=== PATIENT | female | born 1930 | race Caucasian/White ===

== ENCOUNTER 2016-11-09 10:34 | Inpatient (IN) ==
[2016-11-09] MEDS ORDERED: ONDANSETRON 4 MG/2 ML VIAL IV PRN (15:13)
[2016-11-09] MEDS ORDERED: ZALEPLON 5 MG CAPSULE PO PRN (15:13)
[2016-11-09] MEDS ORDERED: MAGNESIUM SULF RIDER 2 GM in PREMIX 1 EACH IV PRN (15:13)
[2016-11-09] MEDS ORDERED: ACETAMINOPHEN 325 MG TABLET PO PRN (15:13)
[2016-11-09] MEDS ORDERED: MAGNESIUM SULF RIDER 4 GM in PREMIX 1 EACH IV PRN (15:13)
[2016-11-09] MEDS ORDERED: BISACODYL 5 MG TABLET PO PRN (15:13)
--- NOTE | 2016-11-09 15:25 | EKG Report ---
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
--- NOTE | 2016-11-09 15:31 | Cardiology History & Physical ---
<José AntonioHanMichelle E - Last Filed: 11/09/16 15:16> Assessment and Plan - Time spent with patient Time spent with patient: Greater than 30 minutes (Due to assessment, plan, and documentation.) (1) Symptomatic bradycardia Status: Acute Assessment and plan: This occurred while patient has been on digoxin and coreg. Will hold all mariusz blocking agents and continue to monitor. Dr. Ponce to follow with further plan and addendum. Current Visit: Yes (2) Syncope Status: Acute Assessment and plan: Has had one syncopal and several pre-syncopal episodes. Now presents for further evaluation. Will obtain carotid ultrasound and echocardiogram. Current Visit: Yes (3) History of atrial fibrillation Status: Chronic Assessment and plan: Unsure whether this is chronic or paroxysmal. Will continue anticoagulation and monitor. Current Visit: Yes (4) Hypertension Status: Chronic Assessment and plan: Will resume home medications and continue to monitor and adjust as needed. Current Visit: Yes (5) Diabetes mellitus Status: Chronic Assessment and plan: Accucheks ACHS with sliding scale insulin. Current Visit: Yes (6) Hyperlipidemia Status: Chronic Assessment and plan: We will check lipid panel in a.m. Current Visit: Yes (7) History of leukemia Status: Resolved Assessment and plan: Has been in remission for the past 6 or 7 years. Current Visit: Yes (8) Chronic anticoagulation Status: Chronic Assessment and plan: On Coumadin daily. Will monitor PT/INR. Current Visit: Yes History of Present Illness Chief complaint: syncope, bradycardia History of present illness: [employer]: DR. LAINEZ PCP: DR. NORRIS Ms. Guerra is a 86 year old female who has been followed by Dr. Lainez in the past. She has history of atrial fibrillation, diabetes mellitus, hypertension, hyperlipidemia, chronic anticoagulation, leukemia in remission. Risk factors are significant for: Hypertension, diabetes, hyperlipidemia, sedentary lifestyle. She is a lifetime non-smoker. She denies a history of CVA or TIA. Ms. Guerra is admitted to the telemetry unit from Dr. Norris's office in [place] for further evaluation of syncope and bradycardia. Ms. Guerra has been having presyncopal episodes for the past month. This past Sunday, she had a syncopal episode around 4 or 5:00 in the evening. Her son was at home with her when this occurred and apparently she was sitting in her chair when her eyes rolled back in her head and she slumped over. She tells me that she woke up with her son standing over her asking if she was okay. Apparently this episode lasted less than a minute she has no recollection of this. She denies loss of bowel or bladder or biting her tongue. She tells me today she had 5 episodes where things went "dark" that lasted approximately 2-3 seconds. Her daughter Destiny is at the bedside and states it seems as if these episodes are becoming more frequent and more intense. She denies associated chest pain, shortness of breath, dizziness, palpitations, lightheadedness. She was recently given a Holter monitor to wear and the report from this revealed multiple episodes of bradycardia including many pauses longer than 30 seconds, several pauses of 4-5 seconds at least 2 of which were associated with presyncope symptoms per patient diary. Per report from her PCP, her digoxin was held but she had subsequent tachyarrhythmias. Dr. Ponce to follow with further plan and addendum. Home Medications Medication Instructions Recorded Confirmed Type Carvedilol 12.5 mg PO BID 11/09/16 11/09/16 History Digoxin 0.5 tablet PO DAILY@1800 11/09/16 11/09/16 History Furosemide 20 mg PO DAILY 11/09/16 11/09/16 History Gemfibrozil 600 mg PO BID 11/09/16 11/09/16 History Lisinopril 20 mg PO DAILY 11/09/16 11/09/16 History Guys-3 Fatty Acids/Fish Oil [Fish 1 capsule PO DAILY 11/09/16 11/09/16 History Oil 1,000 mg Softgel] Potassium Chloride [K-Tab ER] 20 meq PO BID 11/09/16 11/09/16 History Warfarin [Coumadin] 2.5 mg PO DAILY@1800 11/09/16 11/09/16 History amLODIPine [Norvasc] 5 mg PO DAILY 11/09/16 11/09/16 History glipiZIDE [Glipizide] 5 mg PO BID 11/09/16 11/09/16 History Allergies Allergy/AdvReac Type Severity Reaction Status Date / Time No Known Allergies Allergy Verified 11/09/16 14:18 Review of systems: - Constitutional: Present: As per HPI. Absent: anorexia, chills, daytime sleepiness, excessive sweating, fever(s), frequent falls, headache(s), increased appetite, lethargy, malaise, night sweats, stops breathing during sleep, weakness, weight gain, weight loss, fatigue. - EENT Eyes: Present: As per HPI. Absent: blurry vision, diplopia, loss of vision Ears: Present: As per HPI. Absent: decreased hearing, ear discharge, ear pain Nose, mouth and throat: Present: As per HPI. Absent: dysphagia, epistaxis, headache(s), hoarseness, lip swelling, nasal congestion, neck mass, neck pain, sinus pressure, sore throat, throat swelling, tongue swelling, vertigo - Cardiovascular: Present: as per HPI. Absent: chest pain at rest, chest pain with activity, dyspnea, dyspnea on exertion, edema, claudication, diaphoresis, radiating jaw, neck or arm pain, lightheadedness, orthopnea, palpitations, PND - Respiratory: Present: as per HPI. Absent: dyspnea, dyspnea on exertion, cough , hemoptysis, wheezing, snoring, pain on inspiration - Gastrointestinal: Present: As per HPI. Absent: abdominal pain, bloating, change in bowel habits, constipation, diarrhea, heartburn, hematemesis, hematochezia, loose stools, melena, nausea, vomiting - Genitourinary: Present: As per HPI. Absent: difficulty urinating, dysuria, flank pain, hematuria, nocturia, urinary frequency, urinary incontinence - Musculoskeletal: Present: As per HPI. Absent: arthralgias, back pain, joint swelling, limited range of motion, muscle cramps, muscle weakness, myalgias - Neurological: Present: syncope, near syncope, as per HPI. Absent: abnormal gait, abnormal speech, behavioral changes, confusion, convulsions, disequilibrium, dizziness, focal weakness, frequent falls, headache(s), memory loss, numbness, paresthesias, radicular pain, tremor(s) - Psychiatric: Present: As per HPI. Absent: anxiety, confusion, depression, panic attacks - Endocrine: Present: As per HPI. Absent: cold intolerance, fatigue, heat intolerance, polydipsia, polyphagia - Hematologic/Lymphatic: Present: As per HPI. Absent: easy bleeding, easy bruising, lymphadenopathy Medical,Surgical,& Family Hx - Medical History Cardio: History of: Cardiac Dysrhythmia (afib), Hypertension Endocrine: History of: Diabetes Mellitus (IDDM), Dyslipidemia Hematology: History of: Hematologic Cancer (History of leukemia 6 or 7 years ago , now in remission.) Other: History of: Cancer (leukemia, skin ca) - Surgical History Orthopedic Surgeries: Surgical HX of;: Total Hip Replacement (right) - Family History Family History: Reports;: Family Cancer, Family Diabetes, Family Heart Disease, Family Hypertension, Family Stroke - Social History Smoking Status: Never smoker Frequency of Alcohol Use: None Type of Drug Use: None Marital Status: Single Lives With:: Alone Functional capacity: independent ambulation Cardiology Physical Exam - Constitutional Vitals: Vital Signs Temp Pulse Resp BP Pulse Ox 98.4 F 62 18 142/81 100 11/09/16 14:09 11/09/16 14:09 11/09/16 14:09 11/09/16 14:09 11/09/16 14:09 Intake and Output 11/09/16 11/09/16 11/09/16 06:59 14:59 22:59 Other: Weight 118 lb Patient Weight 11/10/16 06:59 Weight 118 lb Exam: General appearance: Pleasant and cooperative. Normal weight, no acute distress. - Head Head exam: Present: normal inspection, normocephalic, atraumatic. Absent: hematoma, laceration - Eye Eye exam: Present: EOMI. Absent: conjunctival injection, nystagmus, periorbital swelling, scleral icterus, laceration to eyelids Pupils: Present: PERRL. Absent: constricted, dilated, fixed, irregular, unequal - ENT ENT exam: Present: normal exam, normal external ear exam - Neck Neck exam: Present: normal inspection. Absent: lymphadenopathy, meningismus, tenderness, thyromegaly - Respiratory Respiratory exam: Present: clear to auscultation bilaterally. Absent: accessory muscle use, chest wall tenderness - Cardiovascular Cardiovascular exam: Present: irregular rate and rhythm, bradycardia, soft systolic murmur. Absent: carotid bruit, gallop, JVD, rubs - GI/Abdominal GI/Abdominal exam: Present: normal bowel sounds, soft. Absent: distended, firm , guarding, hernia, mass, tenderness, rebound. - Extremities Exam Extremities exam: Present: normal inspection, normal capillary refill. Upper extremity pulses 2+. Lower extremity pulses 2+. Absent: calf tenderness, edema -Musculoskeletal Exam Musculoskeletal: Present: No Fluid Collection, No Pain, Normal Range of Motion - Back Exam Back exam: Present: normal inspection. Absent: muscle spasm, vertebral tenderness - Neurological Exam Neurological exam: Present: alert, oriented X3, grossly intact without resting or essential tremor - Psychiatric Psychiatric exam: Present: normal affect, normal mood - Skin Skin exam: Present: normal color, warm, dry, intact. Absent: cyanosis, diaphoretic, rash, urticaria Result/EKG - EKG EKG results: interpreted by me (Bradycardia) EKG shows: atrial fibrillation <Francy Ponce - Last Filed: 11/09/16 18:16> History of Present Illness History of present illness: I have personally interviewed and evaluated the patient, reviewed the chart and discussed medical decision-making with practitioner José Antonio. I have read this note and agree with her documentation here in. We are going to stop her Coumadin, digoxin and Coreg. She likely will require pacemaker implantation but we will monitor her rhythm once we have withheld her mariusz blocking agents. I discussed this case with Dr. Lutz. Cardiology Physical Exam - Constitutional Vitals: Vital Signs Temp Pulse Resp BP Pulse Ox 98.2 F 62 18 165/82 98 11/09/16 16:00 11/09/16 16:00 11/09/16 16:00 11/09/16 16:00 11/09/16 16:00 Intake and Output 11/09/16 11/09/16 11/09/16 07:59 15:59 23:59 Other: Weight 53.524 kg Patient Weight 11/09/16 23:59 Weight 53.524 kg Result/EKG - Labs CBC & BMP: 11/09/16 15:27 11/09/16 15:27 Labs: Laboratory Results - last 24 hr 11/09/16 11/09/16 11/09/16 15:27 15:27 15:27 WBC 8.3 RBC 4.33 Hgb 13.4 Hct 41.6 MCV 96.1 MCH 31 MCHC 32.2 RDW 13.3 Plt Count 186 MPV 10.9 Neut % (Auto) 37.6 L Lymph % (Auto) 47.1 [place] % (Auto) 12.4 Eos % (Auto) 2.0 Baso % (Auto) 0.7 Neut # (Auto) 3.1 Lymph # (Auto) 3.9 [place] # (Auto) 1.0 H Eos # (Auto) 0.2 Baso # (Auto) 0.1 Total Counted 100 Immature Gran % 0.2 Nucleated RBC % 0.0 Immature Gran # 0.02 Segmented Neutrophils 51 Lymphocytes 40 Monocytes 7 Eosinophils 2 Nucleated RBCs # 0.00 Platelet Estimate Normal INR PT Patient/Control Mix Sodium 142 Potassium 4.1 Chloride 108 H Carbon Dioxide 28 Anion Gap 10.1 BUN 18 Creatinine 0.70 GFR Calculation 72 BUN/Creatinine Ratio 25.00 H Glucose 127 H Calculated Osmolality 286.1 Calcium 8.8 Total Bilirubin 0.40 AST 23 ALT 22 Alkaline Phosphatase 76 B-Natriuretic Peptide Total Protein 6.0 L Albumin 3.6 Globulin 2.4 Albumin/Globulin Ratio 1.5 TSH 3rd Generation 1.740 11/09/16 11/09/16 15:27 15:27 WBC RBC Hgb Hct MCV MCH MCHC RDW Plt Count MPV Neut % (Auto) Lymph % (Auto) [place] % (Auto) Eos % (Auto) Baso % (Auto) Neut # (Auto) Lymph # (Auto) [place] # (Auto) Eos # (Auto) Baso # (Auto) Total Counted Immature Gran % Nucleated RBC % Immature Gran # Segmented Neutrophils Lymphocytes Monocytes Eosinophils Nucleated RBCs # Platelet Estimate INR 1.6 PT Patient/Control Mix 17.2 Sodium Potassium Chloride Carbon Dioxide Anion Gap BUN Creatinine GFR Calculation BUN/Creatinine Ratio Glucose Calculated Osmolality Calcium Total Bilirubin AST ALT Alkaline Phosphatase B-Natriuretic Peptide 309 H Total Protein Albumin Globulin Albumin/Globulin Ratio TSH 3rd Generation
[2016-11-09] MEDS ORDERED: GLUCAGON 1 MG VIAL IM PRN (15:39)
[2016-11-09] MEDS ORDERED: DEXTROSE 50% 25 GM/50 ML VIAL IV PRN (15:39)
[2016-11-09 16:23] LABS: Basophils # 0.1 10*3/uL (0.0-0.2); Basophils % 0.7 % (0.0-0.8); Eosinophils # 0.2 10*3/uL (0.0-0.87); Hematocrit 41.6 VOL% (35.7-47.0); Hemoglobin 13.4 GM/DL (12.0-16.0); Immature Granulocytes % 0.2 %; Immature Granulocytes Absolute 0.02 #; Lymphocytes # 3.9 10*3/uL (1.4-4.0); Lymphocytes % 47.1 % (21.3-54.2); Mean Corpuscular HGB Conc 32.2 GM/DL (32-36); Mean Corpuscular Hemoglobin 31 PG (27-34); Mean Corpuscular Volume 96.1 FL (87-102); Mean Platelet Volume 10.9 FL (9.6-12.0); Monocytes % 12.4 % (1.7-12.7); Neutrophils # 3.1 10*3/uL (1.4-7.4); Neutrophils % 37.6 % (38.7-73.9); Platelet Count 186 T/CUMM (130-400); Red Blood Count 4.33 MC/CUMM (3.8-5.5); Red Cell Distribution Width 13.3 % (9.3-17.3); White Blood Count 8.3 T/CUMM (4-12)
[2016-11-09 16:32] LABS: INR 1.6; PT Patient Result 17.2 SECS
[2016-11-09 16:53] LABS: Albumin 3.6 G/DL (3.4-5.0); Bilirubin,Total 0.4 MG/DL (0.2-1.0); Calcium 8.8 MG/DL (8.5-10.1); Osmolality,Calculated 286.1 MOS/KG (273-304); Potassium 4.1 MMOL/L (3.5-5.1)
[2016-11-09 17:22] LABS: Eosinophils 2 % (0-10); Lymphocytes 40 % (20-55); Platelet Estimate Normal; Segmented Neutrophils 51 % (50-85); Total Cells Counted 100
[2016-11-09] MEDS: INSULIN LISPRO 100 UNIT/ML SUBCUT SCH ×2 (17:41→21:27)
--- NOTE | 2016-11-09 18:41 | XRay Report ---
History: Shortness of breath Date: 11/09/2016 Study: Chest x-ray single view Comparison exam: No previous chest x-ray available There is cardiomegaly. There is no mediastinal mass. There is mild aortic arch calcification. The pulmonary vasculature is not engorged. The lungs are well expanded. There are some scattered emphysematous changes. There is no acute infiltrate. There is no gross pleural effusion. There is osteopenia. There is [id number] thoracic spondylosis. Impression: Cardiomegaly without overt CHF. Chronic lung changes PROCEDURE INTERPRETED AT [facility] DEPARTMENT OF RADIOLOGY Final Report Signed by: Dr. Maryam Rose
--- NOTE | 2016-11-09 19:23 | Ultrasound Report ---
History: Syncope Date: 11/09/2016 Study: Carotid duplex ultrasound Comparison exam: No previous Color Doppler, wave form analysis, and grayscale analysis of the cervical carotid arteries was performed. There is some mild to moderate partially calcified plaque in either carotid bulb. Waveform analysis shows proper directional flow of the cervical carotid arteries. There is antegrade flow in either vertebral artery. The distal right ICA measures 4.4 mm diameter; the left measures 4.7 mm diameter. Peak systolic velocities are as follows: Right CCA 52 cm/s Right ICA 54 cm/s Right ECA 69 cm/s Right vertebral 53 cm/s Right IC/CC ratio 1.0 Left CCA 55 cm/s Left ICA 48 cm/s Left ECA 51 cm/s Left vertebral 24 cm/s Left IC/CC ratio 0.9 There is 0-15% diameter reduction narrowing of either internal carotid artery using indirect NASCET criteria. Ultrasound images were captured and archived. Impression: No hemodynamically significant internal carotid artery stenosis PROCEDURE INTERPRETED AT [facility] DEPARTMENT OF RADIOLOGY Final Report Signed by: Dr. Maryam Rose
[2016-11-10 05:28] LABS: Basophils # 0.1 10*3/uL (0.0-0.2); Basophils % 0.7 % (0.0-0.8); Eosinophils # 0.3 10*3/uL (0.0-0.87); Eosinophils % 3.3 % (0.00-10.9); Hematocrit 38.3 VOL% (35.7-47.0); Hemoglobin 12.7 GM/DL (12.0-16.0); Immature Granulocytes % 0.2 %; Immature Granulocytes Absolute 0.02 #; Lymphocytes # 5.5 10*3/uL (1.4-4.0); Lymphocytes % 56.6 % (21.3-54.2); Mean Corpuscular HGB Conc 33.2 GM/DL (32-36); Mean Corpuscular Hemoglobin 31 PG (27-34); Mean Corpuscular Volume 93.4 FL (87-102); Mean Platelet Volume 10.5 FL (9.6-12.0); Monocytes # 0.8 10*3/uL (0.11-0.8); Monocytes % 7.8 % (1.7-12.7); Neutrophils # 3.1 10*3/uL (1.4-7.4); Neutrophils % 31.4 % (38.7-73.9); Platelet Count 167 T/CUMM (130-400); White Blood Count 9.8 T/CUMM (4-12)
[2016-11-10 05:53] LABS: Atypical Lymphocytes Few; Eosinophils 2 % (0-10); Hypochromasia 1+; Lymphocytes 67 % (20-55); Microcytosis 1+; Platelet Estimate Adequate; Segmented Neutrophils 26 % (50-85); Total Cells Counted 100
[2016-11-10 06:06] LABS: Albumin 3.3 G/DL (3.4-5.0); Bilirubin,Total 0.9 MG/DL (0.2-1.0); Calcium 8.6 MG/DL (8.5-10.1); Potassium 3.8 MMOL/L (3.5-5.1); Risk Ratio 5.6; Total Protein 5.6 G/DL (6.4-8.3); VLDL CHOLESTEROL 37.2 MG/DL
--- NOTE | 2016-11-10 07:47 | EKG Report ---
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
--- NOTE | 2016-11-10 08:05 | Electrophysiology Progress Not ---
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 Hypertension hyperlipidemia CLL type 2 diabetes mellitus. -We discussed risks and benefits of management options. We will proceed with a pacemaker implantation on Sunday. -Follow-up echo. -Continue to hold anticoagulation, Coreg and digoxin Current Visit: Yes (2) Syncope Status: Acute Current Visit: Yes (3) History of atrial fibrillation Status: Chronic Current Visit: Yes (4) Diabetes mellitus Status: Chronic Current Visit: Yes (5) Hypertension Status: Chronic Current Visit: Yes (6) Hyperlipidemia Status: Chronic Current Visit: Yes (7) History of leukemia Status: Resolved Current Visit: Yes (8) Chronic anticoagulation Status: Chronic Current Visit: Yes Electrophysiology Subjective Interval history: 86-year-old female, with history of chronic atrial fibrillation, now with intermittent dizziness lightheadedness and one episode of syncope. Indolent CLL , hypertension hyperlipidemia, type 2 diabetes mellitus. She was admitted due to symptomatic bradycardia. On the EKG and telemetry, she is in atrial fibrillation, with occasional pauses up to 3 seconds, with dominant bradycardia. She is currently feeling fine, but unsteady when tries to ambulate. She was anticoagulated, which is on hold currently. No significant injuries, related to falls so far. She was on digoxin and carvedilol for rate control, which were hold, but the heart rate trend did not improve significantly. Exam - Constitutional Vitals: Period Temp Pulse Resp BP Sys/[place] Pulse Ox Last 24 Hr 98 F-99.6 F 62-79 14-18 131-165/66-93 96-100 General appearance: normal weight, no acute distress - Head Head exam: Present: normal inspection, normocephalic - Eye Eye exam: Absent: conjunctival injection Pupils: Absent: dilated - ENT ENT exam: Present: normal external ear exam - Neck Neck exam: Present: normal inspection - Respiratory Respiratory exam: Present: clear to auscultation bilaterally - Cardiovascular Cardiovascular exam: Present: irregular rhythm, systolic murmur - GI/Abdominal GI/Abdominal exam: Present: normal bowel sounds - Extremities Exam Extremities exam: Present: normal inspection, normal capillary refill. Absent: edema - Back Exam Back exam: Present: normal inspection - Neurological Exam Neurological exam: Present: alert, oriented X3 - Psychiatric Psychiatric exam: Present: normal affect, normal mood - Skin Skin exam: Present: normal color, warm. Absent: cyanosis Results - Labs CBC & BMP: 11/10/16 05:18 11/10/16 05:18 Lab Results: I have reviewed the past 24 hour labs
[2016-11-10] MEDS: INSULIN LISPRO 100 UNIT/ML SUBCUT SCH ×4 (09:03→21:00)
[2016-11-10] MEDS: PANTOPRAZOLE 40 MG TABLET PO SCH (10:48)
--- NOTE | 2016-11-10 11:38 | Cardiology Progress Note ---
<Isatu Isbell E - Last Filed: 11/10/16 11:38> Assessment and Plan - Time spent with patient Time spent with patient: Greater than 30 minutes (1) Symptomatic bradycardia Status: Acute Assessment and plan: See plan of care listed below Current Visit: Yes (2) Syncope Status: Acute Assessment and plan: See plan of care listed below Current Visit: Yes (3) Chronic anticoagulation Status: Chronic Assessment and plan: See plan of care listed below Current Visit: Yes (4) Diabetes mellitus Status: Chronic Assessment and plan: See plan of care listed below Current Visit: Yes (5) History of atrial fibrillation Status: Chronic Assessment and plan: See plan of care listed below Current Visit: Yes (6) Hyperlipidemia Status: Chronic Assessment and plan: See plan of care listed below Current Visit: Yes (7) Hypertension Status: Chronic Assessment and plan: See plan of care listed below Current Visit: Yes (8) History of leukemia Status: Resolved Assessment and plan: See plan of care listed below Current Visit: Yes Cardiology - PN: Subj Interval history: CONSULTATIVE SALES ASSOCIATE: DR. LAINEZ PCP: DR. NORRIS Ms. Guerra is a 86 year old female who has been followed by Dr. Lainez in the past. She has history of atrial fibrillation, diabetes mellitus, hypertension, hyperlipidemia, chronic anticoagulation, leukemia in remission. Patient was admitted November 09, 2016 for evaluation of syncope and bradycardia. She had been followed outpatient by Dr. Norris for syncope. She was noted to have atrial fibrillation with several long pauses on 24-hour Holter monitor. Her digoxin has been held as well as her beta-valente. Dr. Lutz has been consulted and she will require permanent pacemaker implantation on Sunday, November. In the meantime, her Coumadin has been held in an effort to ready her for procedure on Sunday. Labs are stable. This morning she states she is doing well without chest pain, heaviness or tightness. She continues to have long pauses. She states she is feeling fine at this point. Tomorrow, may need to consider starting Lovenox for 24 hours depending on results of INR. ASSESSMENT/PLAN: 1. SYNCOPE - no recurrent syncope since admission. Continue to monitor closely 2. BRADYCARDIA, SYMPTOMATIC - all mariusz blocking agents have been held at this time. Pacemaker is planned for Sunday 3. HYPERTENSION - adequately controlled 4. ATRIAL FIBRILLATION - persistent 5. DIABETES - continue to cover with sliding scale 6. DYSLIPIDEMIA - continue lipid-lowering agent 7. HISTORY OF CLL - stable 8. CHRONIC ANTICOAGULATION - warfarin on hold. Monitoring PT/INR daily Exam (Progress Note) - Constitutional Vitals: Period Temp Pulse Resp BP Sys/Toscano Pulse Ox Last 24 Hr 98 F-99.9 F 62-79 14-18 131-179/66-93 95-100 Exam: General: [Appears well with no apparent distress.] [Pleasant and cooperative. ] [Appears comfortable.] HEENT: [PERRL, normocephalic, atraumatic. Mucous membranes moist. No jaundice noted. Conjunctiva moist and clear, sclerae anicteric] Neck: No JVD/HJR, no thyromegaly or lymphadenopathy noted. No carotid bruit appreciated Cardiac: [Regular rate and rhythm.] [No murmur rub or gallop.] Lungs: [Clear to auscultation without accessory muscle use to assist the respiratory pattern.] Abdomen: Soft, bowel sounds normoactive. Nontender and nondistended. No abdominal bruit or thrill noted. No masses noted. Musculoskeletal: No fluid collection. Decreased range of motion is noted. Extremities: No clubbing, cyanosis noted. [ No edema noted.] Upper extremity pulses 2+. Lower extremity pulses 2+. Capillary refill less than 3 seconds. Skin: No unusual lesions or rashes. No skin breakdown appreciated. Neuro: Awake, alert and oriented 3. Moves all extremities well without hemiparesis or paralysis. No essential tremor is appreciated. Result/EKG - Labs CBC & BMP: 11/10/16 05:18 11/10/16 05:18 Lab Results: I have reviewed the past 24 hour labs Labs: Laboratory Results - last 24 hr 11/09/16 11/09/16 11/09/16 15:27 15:27 15:27 WBC 8.3 RBC 4.33 Hgb 13.4 Hct 41.6 MCV 96.1 MCH 31 MCHC 32.2 RDW 13.3 Plt Count 186 MPV 10.9 Neut % (Auto) 37.6 L Lymph % (Auto) 47.1 Yell % (Auto) 12.4 Eos % (Auto) 2.0 Baso % (Auto) 0.7 Neut # (Auto) 3.1 Lymph # (Auto) 3.9 Yell # (Auto) 1.0 H Eos # (Auto) 0.2 Baso # (Auto) 0.1 Total Counted 100 Immature Gran % 0.2 Nucleated RBC % 0.0 Immature Gran # 0.02 Segmented Neutrophils 51 Lymphocytes 40 Monocytes 7 Eosinophils 2 Nucleated RBCs # 0.00 Atypical Lymphocytes Platelet Estimate Normal Hypochromasia Microcytosis INR PT Patient/Control Mix Sodium 142 Potassium 4.1 Chloride 108 H Carbon Dioxide 28 Anion Gap 10.1 BUN 18 Creatinine 0.70 GFR Calculation 72 BUN/Creatinine Ratio 25.00 H Glucose 127 H POC Glucose Calculated Osmolality 286.1 Calcium 8.8 Total Bilirubin 0.40 AST 23 ALT 22 Alkaline Phosphatase 76 B-Natriuretic Peptide Total Protein 6.0 L Albumin 3.6 Globulin 2.4 Albumin/Globulin Ratio 1.5 Triglycerides Cholesterol LDL Cholesterol VLDL Cholesterol HDL Cholesterol Heart Disease Risk Ratio TSH 3rd Generation 1.740 Digoxin 11/09/16 11/09/16 11/09/16 15:27 15:27 15:30 WBC RBC Hgb Hct MCV MCH MCHC RDW Plt Count MPV Neut % (Auto) Lymph % (Auto) Yell % (Auto) Eos % (Auto) Baso % (Auto) Neut # (Auto) Lymph # (Auto) Yell # (Auto) Eos # (Auto) Baso # (Auto) Total Counted Immature Gran % Nucleated RBC % Immature Gran # Segmented Neutrophils Lymphocytes Monocytes Eosinophils Nucleated RBCs # Atypical Lymphocytes Platelet Estimate Hypochromasia Microcytosis INR 1.6 PT Patient/Control Mix 17.2 Sodium Potassium Chloride Carbon Dioxide Anion Gap BUN Creatinine GFR Calculation BUN/Creatinine Ratio Glucose POC Glucose Calculated Osmolality Calcium Total Bilirubin AST ALT Alkaline Phosphatase B-Natriuretic Peptide 309 H Total Protein Albumin Globulin Albumin/Globulin Ratio Triglycerides Cholesterol LDL Cholesterol VLDL Cholesterol HDL Cholesterol Heart Disease Risk Ratio TSH 3rd Generation Digoxin 1.30 11/09/16 11/10/16 11/10/16 20:49 05:18 05:18 WBC 9.8 RBC 4.10 Hgb 12.7 Hct 38.3 MCV 93.4 MCH 31 MCHC 33.2 RDW 13.0 Plt Count 167 MPV 10.5 Neut % (Auto) 31.4 L Lymph % (Auto) 56.6 H Yell % (Auto) 7.8 Eos % (Auto) 3.3 Baso % (Auto) 0.7 Neut # (Auto) 3.1 Lymph # (Auto) 5.5 H Yell # (Auto) 0.8 Eos # (Auto) 0.3 Baso # (Auto) 0.1 Total Counted 100 Immature Gran % 0.2 Nucleated RBC % 0.0 Immature Gran # 0.02 Segmented Neutrophils 26 L Lymphocytes 67 H Monocytes 5 Eosinophils 2 Nucleated RBCs # 0.00 Atypical Lymphocytes Few Platelet Estimate Adequate Hypochromasia 1+ Microcytosis 1+ INR PT Patient/Control Mix Sodium 143 Potassium 3.8 Chloride 110 H Carbon Dioxide 24 Anion Gap 12.8 BUN 12 Creatinine 0.50 L GFR Calculation 83 BUN/Creatinine Ratio 24.00 H Glucose 119 H POC Glucose 158 H Calculated Osmolality 285.0 Calcium 8.6 Total Bilirubin 0.90 AST 20 ALT 19 Alkaline Phosphatase 66 B-Natriuretic Peptide Total Protein 5.6 L Albumin 3.3 L Globulin 2.3 Albumin/Globulin Ratio 1.4 Triglycerides 186 H Cholesterol 168 LDL Cholesterol 108.0 VLDL Cholesterol 37.2 HDL Cholesterol 30 L Heart Disease Risk Ratio 5.60 TSH 3rd Generation Digoxin 11/10/16 11/10/16 05:18 08:31 WBC RBC Hgb Hct MCV MCH MCHC RDW Plt Count MPV Neut % (Auto) Lymph % (Auto) Yell % (Auto) Eos % (Auto) Baso % (Auto) Neut # (Auto) Lymph # (Auto) Yell # (Auto) Eos # (Auto) Baso # (Auto) Total Counted Immature Gran % Nucleated RBC % Immature Gran # Segmented Neutrophils Lymphocytes Monocytes Eosinophils Nucleated RBCs # Atypical Lymphocytes Platelet Estimate Hypochromasia Microcytosis INR PT Patient/Control Mix Sodium Potassium Chloride Carbon Dioxide Anion Gap BUN Creatinine GFR Calculation BUN/Creatinine Ratio Glucose POC Glucose 120 H Calculated Osmolality Calcium Total Bilirubin AST ALT Alkaline Phosphatase B-Natriuretic Peptide Total Protein Albumin Globulin Albumin/Globulin Ratio Triglycerides Cholesterol LDL Cholesterol VLDL Cholesterol HDL Cholesterol Heart Disease Risk Ratio TSH 3rd Generation Digoxin 0.90 - EKG EKG results: interpreted by me EKG shows: atrial fibrillation <Francy Ponce - Last Filed: 11/10/16 15:48> Cardiology - PN: Subj Interval history: I have personally interviewed and evaluated the patient, reviewed the chart and discussed medical decision-making with Practitioner Sukhi. I have read this note and agree with her documentation here in. She has atrial fibrillation with some pauses, and also continues to have some slow ventricular response. We are anticipating pacemaker placement on Sunday. Given her advanced age and the syncope or presyncope she has been experiencing with these symptoms we will need to continue to monitor her in the hospital. INR is being withheld in anticipation of the procedure. Exam (Progress Note) - Constitutional Vitals: Period Temp Pulse Resp BP Sys/Toscano Pulse Ox Last 24 Hr 97.7 F-99.9 F 62-79 14-18 131-179/66-93 95-98 Result/EKG - Labs CBC & BMP: 11/10/16 05:18 11/10/16 05:18 Labs: Laboratory Results - last 24 hr 11/09/16 11/09/16 11/09/16 15:27 15:27 15:27 WBC 8.3 RBC 4.33 Hgb 13.4 Hct 41.6 MCV 96.1 MCH 31 MCHC 32.2 RDW 13.3 Plt Count 186 MPV 10.9 Neut % (Auto) 37.6 L Lymph % (Auto) 47.1 Yell % (Auto) 12.4 Eos % (Auto) 2.0 Baso % (Auto) 0.7 Neut # (Auto) 3.1 Lymph # (Auto) 3.9 Yell # (Auto) 1.0 H Eos # (Auto) 0.2 Baso # (Auto) 0.1 Total Counted 100 Immature Gran % 0.2 Nucleated RBC % 0.0 Immature Gran # 0.02 Segmented Neutrophils 51 Lymphocytes 40 Monocytes 7 Eosinophils 2 Nucleated RBCs # 0.00 Atypical Lymphocytes Platelet Estimate Normal Hypochromasia Microcytosis INR PT Patient/Control Mix Sodium 142 Potassium 4.1 Chloride 108 H Carbon Dioxide 28 Anion Gap 10.1 BUN 18 Creatinine 0.70 GFR Calculation 72 BUN/Creatinine Ratio 25.00 H Glucose 127 H POC Glucose Calculated Osmolality 286.1 Calcium 8.8 Total Bilirubin 0.40 AST 23 ALT 22 Alkaline Phosphatase 76 B-Natriuretic Peptide Total Protein 6.0 L Albumin 3.6 Globulin 2.4 Albumin/Globulin Ratio 1.5 Triglycerides Cholesterol LDL Cholesterol VLDL Cholesterol HDL Cholesterol Heart Disease Risk Ratio TSH 3rd Generation 1.740 Digoxin 11/09/16 11/09/16 11/09/16 15:27 15:27 15:30 WBC RBC Hgb Hct MCV MCH MCHC RDW Plt Count MPV Neut % (Auto) Lymph % (Auto) Yell % (Auto) Eos % (Auto) Baso % (Auto) Neut # (Auto) Lymph # (Auto) Yell # (Auto) Eos # (Auto) Baso # (Auto) Total Counted Immature Gran % Nucleated RBC % Immature Gran # Segmented Neutrophils Lymphocytes Monocytes Eosinophils Nucleated RBCs # Atypical Lymphocytes Platelet Estimate Hypochromasia Microcytosis INR 1.6 PT Patient/Control Mix 17.2 Sodium Potassium Chloride Carbon Dioxide Anion Gap BUN Creatinine GFR Calculation BUN/Creatinine Ratio Glucose POC Glucose Calculated Osmolality Calcium Total Bilirubin AST ALT Alkaline Phosphatase B-Natriuretic Peptide 309 H Total Protein Albumin Globulin Albumin/Globulin Ratio Triglycerides Cholesterol LDL Cholesterol VLDL Cholesterol HDL Cholesterol Heart Disease Risk Ratio TSH 3rd Generation Digoxin 1.30 11/09/16 11/10/16 11/10/16 20:49 05:18 05:18 WBC 9.8 RBC 4.10 Hgb 12.7 Hct 38.3 MCV 93.4 MCH 31 MCHC 33.2 RDW 13.0 Plt Count 167 MPV 10.5 Neut % (Auto) 31.4 L Lymph % (Auto) 56.6 H Yell % (Auto) 7.8 Eos % (Auto) 3.3 Baso % (Auto) 0.7 Neut # (Auto) 3.1 Lymph # (Auto) 5.5 H Yell # (Auto) 0.8 Eos # (Auto) 0.3 Baso # (Auto) 0.1 Total Counted 100 Immature Gran % 0.2 Nucleated RBC % 0.0 Immature Gran # 0.02 Segmented Neutrophils 26 L Lymphocytes 67 H Monocytes 5 Eosinophils 2 Nucleated RBCs # 0.00 Atypical Lymphocytes Few Platelet Estimate Adequate Hypochromasia 1+ Microcytosis 1+ INR PT Patient/Control Mix Sodium 143 Potassium 3.8 Chloride 110 H Carbon Dioxide 24 Anion Gap 12.8 BUN 12 Creatinine 0.50 L GFR Calculation 83 BUN/Creatinine Ratio 24.00 H Glucose 119 H POC Glucose 158 H Calculated Osmolality 285.0 Calcium 8.6 Total Bilirubin 0.90 AST 20 ALT 19 Alkaline Phosphatase 66 B-Natriuretic Peptide Total Protein 5.6 L Albumin 3.3 L Globulin 2.3 Albumin/Globulin Ratio 1.4 Triglycerides 186 H Cholesterol 168 LDL Cholesterol 108.0 VLDL Cholesterol 37.2 HDL Cholesterol 30 L Heart Disease Risk Ratio 5.60 TSH 3rd Generation Digoxin 11/10/16 11/10/16 11/10/16 05:18 08:31 12:19 WBC RBC Hgb Hct MCV MCH MCHC RDW Plt Count MPV Neut % (Auto) Lymph % (Auto) Yell % (Auto) Eos % (Auto) Baso % (Auto) Neut # (Auto) Lymph # (Auto) Yell # (Auto) Eos # (Auto) Baso # (Auto) Total Counted Immature Gran % Nucleated RBC % Immature Gran # Segmented Neutrophils Lymphocytes Monocytes Eosinophils Nucleated RBCs # Atypical Lymphocytes Platelet Estimate Hypochromasia Microcytosis INR PT Patient/Control Mix Sodium Potassium Chloride Carbon Dioxide Anion Gap BUN Creatinine GFR Calculation BUN/Creatinine Ratio Glucose POC Glucose 120 H 125 H Calculated Osmolality Calcium Total Bilirubin AST ALT Alkaline Phosphatase B-Natriuretic Peptide Total Protein Albumin Globulin Albumin/Globulin Ratio Triglycerides Cholesterol LDL Cholesterol VLDL Cholesterol HDL Cholesterol Heart Disease Risk Ratio TSH 3rd Generation Digoxin 0.90
[2016-11-10] MEDS ORDERED: SODIUM CHLORIDE 0.9% 1,000 ML IV SCH (12:00)
[2016-11-10] MEDS ORDERED: ENOXAPARIN 40 MG/0.4 ML SYRINGE SUBCUT SCH (12:00)
[2016-11-10] MEDS: glipiZIDE 5 MG TABLET PO SCH ×2 (12:02→20:58)
[2016-11-10] MEDS: OMEGA 3 ACID ETHYL ESTERS 1 GM CAPSULE PO SCH (12:02)
[2016-11-10] MEDS: GEMFIBROZIL 600 MG TABLET PO SCH ×2 (12:02→20:57)
[2016-11-10] MEDS: FUROSEMIDE 20 MG TABLET PO SCH (12:02)
[2016-11-10] MEDS: LISINOPRIL 20 MG TABLET PO SCH (12:02)
[2016-11-10] MEDS: POTASSIUM CHLORIDE 20 MEQ TABLET PO SCH ×2 (12:03→20:58)
--- NOTE | 2016-11-10 20:56 | ECHO Report ---
Leyda Guerra Exam Date: 11/10/2016 09:38 Referring Physician: Technologist: Yandy Stoddard Age: 86 Ht (in): 65 Wt (lb): 118 Gender: F Exam Location: [facility] Indications: chronic anticoag, hx. leukemia, bradycardia, syncope, A fib, HTN, hyperlipidemia BP: 135 / 93 HR: 62 Rhythm: Bradycardia Technical Quality: Fair IMPRESSIONS Normal LV systolic, ejection fraction 60%. Diastolic parameters are indeterminate and underlying atrial fibrillation. Mild biatrial enlargement. Mild to moderate mitral regurgitation. Moderate tricuspid regurgitation. Aortic sclerosis without stenosis. MEASUREMENTS (Male / Female) Normal Values 2D ECHO LV Diastolic Diameter PLAX 3.1 cm 4.2 - 5.9 / 3.9 - 5.3 cm LV Systolic Diameter PLAX 2.0 cm LV Fractional Shortening PLAX 37.5 % IVS Diastolic Thickness 1.2 cm 0.6 - 1.0 / 0.6 - 0.9 cm LVPW Diastolic Thickness 1.1 cm 0.6 - 1.0 / 0.6 - 0.9 cm RV Internal Dim ED PLAX 2.8 cm Aortic Root Diameter 2.4 cm LA Systolic Diameter LX 4.0 cm 3.0 - 4.0 / 2.7 - 3.8 cm DOPPLER TR Peak Velocity 351.0 cm/s TR Peak Gradient 49.3 mmHg FINDINGS Left Ventricle Mildly increased septal wall thickness. Mildly increased posterior wall thickness. Mild concentric left ventricular hypertrophy. Left ventricular ejection fraction is estimated at 55-60 %. Right Ventricle Normal size and function. Right Atrium The right atrium is mildly enlarged. Left Atrium Mildly increased left atrial diameter. Mitral Valve Mild mitral valve sclerosis. Mild- moderate mitral valve regurgitation. Aortic Valve Mild aortic valve sclerosis. Tricuspid Valve Mild tricuspid valve sclerosis. Moderate tricuspid valve regurgitation. Tricuspid regurgitation velocities suggest a PAP of 49.3 mmHg + RAP. Pulmonic Valve Pulmonic valve sclerosis. Pericardium No pericardial effusion. Aorta Normal size aortic root and proximal ascending aorta. Francy Ponce MD (Electronically Signed) Final Date: 10 November 2016 20:54
[2016-11-10] MEDS: DOCUSATE SODIUM 100 MG CAPSULE PO PRN (20:58)
[2016-11-11 05:49] LABS: Basophils # 0.1 10*3/uL (0.0-0.2); Basophils % 0.6 % (0.0-0.8); Eosinophils # 0.4 10*3/uL (0.0-0.87); Eosinophils % 3.5 % (0.00-10.9); Hematocrit 39.2 VOL% (35.7-47.0); Hemoglobin 13.1 GM/DL (12.0-16.0); Immature Granulocytes % 0.5 %; Immature Granulocytes Absolute 0.05 #; Lymphocytes # 5.8 10*3/uL (1.4-4.0); Lymphocytes % 52.7 % (21.3-54.2); Mean Corpuscular HGB Conc 33.4 GM/DL (32-36); Mean Corpuscular Hemoglobin 31 PG (27-34); Mean Corpuscular Volume 92.2 FL (87-102); Mean Platelet Volume 10.9 FL (9.6-12.0); Monocytes % 9.2 % (1.7-12.7); Neutrophils # 3.7 10*3/uL (1.4-7.4); Neutrophils % 33.5 % (38.7-73.9); Platelet Count 184 T/CUMM (130-400); Red Blood Count 4.25 MC/CUMM (3.8-5.5); Red Cell Distribution Width 12.8 % (9.3-17.3)
[2016-11-11 06:14] LABS: Calcium 8.8 MG/DL (8.5-10.1); Magnesium 2.3 MG/DL (1.8-2.4); Osmolality,Calculated 281.3 MOS/KG (273-304); Potassium 3.8 MMOL/L (3.5-5.1)
[2016-11-11 06:16] LABS: INR 1.3
[2016-11-11 06:51] LABS: Atypical Lymphocytes Few; Eosinophils 4 % (0-10); Hypochromasia 1+; Lymphocytes 42 % (20-55); Microcytosis 1+; Platelet Estimate Normal; Segmented Neutrophils 41 % (50-85); Total Cells Counted 100
[2016-11-11] MEDS: INSULIN LISPRO 100 UNIT/ML SUBCUT SCH ×4 (08:19→20:33)
[2016-11-11] MEDS: PANTOPRAZOLE 40 MG TABLET PO SCH (09:00)
[2016-11-11] MEDS: GEMFIBROZIL 600 MG TABLET PO SCH ×2 (09:00→20:33)
[2016-11-11] MEDS: glipiZIDE 5 MG TABLET PO SCH ×2 (09:00→20:33)
[2016-11-11] MEDS: OMEGA 3 ACID ETHYL ESTERS 1 GM CAPSULE PO SCH (09:01)
[2016-11-11] MEDS: POTASSIUM CHLORIDE 20 MEQ TABLET PO SCH ×2 (09:01→20:33)
[2016-11-11] MEDS: FUROSEMIDE 20 MG TABLET PO SCH (09:01)
[2016-11-11] MEDS: ENOXAPARIN 40 MG/0.4 ML SYRINGE SUBCUT SCH (09:02)
[2016-11-11] MEDS: LISINOPRIL 20 MG TABLET PO SCH (09:08)
--- NOTE | 2016-11-11 12:20 | Cardiology Progress Note ---
Cardiology - PN: Subj Interval history: Evening was uneventful, she has no complaints today. Denies any chest pain or shortness of breath. No significant pauses overnight. ASSESSMENT/PLAN: 1. SYNCOPE - no recurrent syncope since admission. Continue to monitor closely. This appeared to be related to some pausing. 2. BRADYCARDIA, SYMPTOMATIC - all mariusz blocking agents have been held at this time. Pacemaker is planned for Sunday 3. HYPERTENSION - adequately controlled 4. ATRIAL FIBRILLATION - persistent 5. DIABETES - continue to cover with sliding scale 6. DYSLIPIDEMIA - continue lipid-lowering agent 7. HISTORY OF CLL - stable 8. CHRONIC ANTICOAGULATION - warfarin on hold in anticipation of pacemaker implantation. Monitoring PT/INR daily Exam (Progress Note) - Constitutional Vitals: Period Temp Pulse Resp BP Sys/Toscano Pulse Ox Last 24 Hr 97 F-99 F 59-99 18-20 127-177/66-79 96-99 Exam: General appearance: normal weight, no acute distress - Head Head exam: Present: normal inspection, normocephalic, atraumatic. Absent: hematoma, laceration - Eye Eye exam: Present: EOMI. Absent: conjunctival injection, nystagmus, periorbital swelling, scleral icterus, laceration to eyelids Pupils: Present: PERRL. Absent: constricted, dilated, fixed, irregular, unequal - ENT ENT exam: Present: normal exam, normal external ear exam - Neck Neck exam: Present: normal inspection. Absent: lymphadenopathy, meningismus, tenderness, thyromegaly - Respiratory Respiratory exam: Present: clear to auscultation bilaterally. Absent: accessory muscle use, chest wall tenderness - Cardiovascular Cardiovascular exam: Present: Irregularly irregular rate and rhythm. Absent: carotid bruit, gallop, JVD, rubs - GI/Abdominal GI/Abdominal exam: Present: normal bowel sounds, soft. Absent: distended, firm , guarding, hernia, mass, tenderness, rebound. - Extremities Exam Extremities exam: Present: normal inspection, normal capillary refill. Absent: calf tenderness, edema - Back Exam Back exam: Present: normal inspection. Absent: muscle spasm, vertebral tenderness - Neurological Exam Neurological exam: Present: alert, oriented X3, grossly intact without resting or intention tremor - Psychiatric Psychiatric exam: Present: normal affect, normal mood - Skin Skin exam: Present: normal color, warm, dry, intact. Absent: cyanosis, diaphoretic, rash, urticaria Result/EKG - Labs CBC & BMP: 11/11/16 04:29 11/11/16 04:29 Labs: Laboratory Results - last 24 hr 11/10/16 11/10/16 11/10/16 12:19 16:30 20:38 WBC RBC Hgb Hct MCV MCH MCHC RDW Plt Count MPV Neut % (Auto) Lymph % (Auto) Bath % (Auto) Eos % (Auto) Baso % (Auto) Neut # (Auto) Lymph # (Auto) Bath # (Auto) Eos # (Auto) Baso # (Auto) Total Counted Immature Gran % Nucleated RBC % Immature Gran # Segmented Neutrophils Lymphocytes Monocytes Eosinophils Basophils Nucleated RBCs # Atypical Lymphocytes Platelet Estimate Hypochromasia Microcytosis Morphology Comment INR PT Patient/Control Mix Sodium Potassium Chloride Carbon Dioxide Anion Gap BUN Creatinine GFR Calculation BUN/Creatinine Ratio Glucose POC Glucose 125 H 130 H 158 H Calculated Osmolality Calcium Magnesium 11/11/16 11/11/16 11/11/16 04:29 04:29 04:29 WBC 11.0 RBC 4.25 Hgb 13.1 Hct 39.2 MCV 92.2 MCH 31 MCHC 33.4 RDW 12.8 Plt Count 184 MPV 10.9 Neut % (Auto) 33.5 L Lymph % (Auto) 52.7 Bath % (Auto) 9.2 Eos % (Auto) 3.5 Baso % (Auto) 0.6 Neut # (Auto) 3.7 Lymph # (Auto) 5.8 H Bath # (Auto) 1.0 H Eos # (Auto) 0.4 Baso # (Auto) 0.1 Total Counted 100 Immature Gran % 0.5 Nucleated RBC % 0.0 Immature Gran # 0.05 Segmented Neutrophils 41 L Lymphocytes 42 Monocytes 12 Eosinophils 4 Basophils 1.0 H Nucleated RBCs # 0.00 Atypical Lymphocytes Few Platelet Estimate Normal Hypochromasia 1+ Microcytosis 1+ Morphology Comment INR 1.3 PT Patient/Control Mix 14.0 Sodium 141 Potassium 3.8 Chloride 107 Carbon Dioxide 24 Anion Gap 13.8 BUN 15 Creatinine 0.50 L GFR Calculation 83 BUN/Creatinine Ratio 30.00 H Glucose 100 POC Glucose Calculated Osmolality 281.3 Calcium 8.8 Magnesium 2.3 11/11/16 11/11/16 07:49 11:18 WBC RBC Hgb Hct MCV MCH MCHC RDW Plt Count MPV Neut % (Auto) Lymph % (Auto) Bath % (Auto) Eos % (Auto) Baso % (Auto) Neut # (Auto) Lymph # (Auto) Bath # (Auto) Eos # (Auto) Baso # (Auto) Total Counted Immature Gran % Nucleated RBC % Immature Gran # Segmented Neutrophils Lymphocytes Monocytes Eosinophils Basophils Nucleated RBCs # Atypical Lymphocytes Platelet Estimate Hypochromasia Microcytosis Morphology Comment INR PT Patient/Control Mix Sodium Potassium Chloride Carbon Dioxide Anion Gap BUN Creatinine GFR Calculation BUN/Creatinine Ratio Glucose POC Glucose 114 H 164 H Calculated Osmolality Calcium Magnesium
[2016-11-12 05:16] LABS: Basophils # 0.1 10*3/uL (0.0-0.2); Basophils % 0.6 % (0.0-0.8); Eosinophils # 0.3 10*3/uL (0.0-0.87); Hematocrit 40.9 VOL% (35.7-47.0); Hemoglobin 13.9 GM/DL (12.0-16.0); Immature Granulocytes % 0.3 %; Immature Granulocytes Absolute 0.03 #; Lymphocytes # 6.2 10*3/uL (1.4-4.0); Lymphocytes % 55.9 % (21.3-54.2); Mean Corpuscular Hemoglobin 31 PG (27-34); Mean Corpuscular Volume 91.9 FL (87-102); Mean Platelet Volume 10.8 FL (9.6-12.0); Monocytes # 1.1 10*3/uL (0.11-0.8); Monocytes % 9.6 % (1.7-12.7); Neutrophils # 3.4 10*3/uL (1.4-7.4); Neutrophils % 30.6 % (38.7-73.9); Platelet Count 197 T/CUMM (130-400); Red Blood Count 4.45 MC/CUMM (3.8-5.5); White Blood Count 11.1 T/CUMM (4-12)
[2016-11-12 05:29] LABS: INR 1.2; PT Patient Result 12.6 SECS
[2016-11-12 05:43] LABS: Calcium 9.1 MG/DL (8.5-10.1); Magnesium 2.3 MG/DL (1.8-2.4); Osmolality,Calculated 284.1 MOS/KG (273-304); Potassium 3.9 MMOL/L (3.5-5.1)
[2016-11-12 06:02] LABS: Eosinophils 2 % (0-10); Lymphocytes 56 % (20-55); Platelet Estimate Normal; Segmented Neutrophils 36 % (50-85); Total Cells Counted 100
[2016-11-12 06:03] LABS: Atypical Lymphocytes Few; Hypochromasia 1+; Microcytosis 1+
[2016-11-12] MEDS: INSULIN LISPRO 100 UNIT/ML SUBCUT SCH ×4 (07:14→20:43)
[2016-11-12] MEDS: ENOXAPARIN 40 MG/0.4 ML SYRINGE SUBCUT SCH (08:49)
[2016-11-12] MEDS: POTASSIUM CHLORIDE 20 MEQ TABLET PO SCH ×2 (08:50→20:44)
[2016-11-12] MEDS: PANTOPRAZOLE 40 MG TABLET PO SCH (08:50)
[2016-11-12] MEDS: LISINOPRIL 20 MG TABLET PO SCH (08:50)
[2016-11-12] MEDS: glipiZIDE 5 MG TABLET PO SCH ×2 (08:50→20:44)
[2016-11-12] MEDS: OMEGA 3 ACID ETHYL ESTERS 1 GM CAPSULE PO SCH (08:50)
[2016-11-12] MEDS: GEMFIBROZIL 600 MG TABLET PO SCH ×2 (08:50→20:44)
[2016-11-12] MEDS: FUROSEMIDE 20 MG TABLET PO SCH (08:50)
--- NOTE | 2016-11-12 09:44 | Electrophysiology Progress Not ---
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 Hypertension hyperlipidemia CLL type 2 diabetes mellitus. -NPO after MN. Proceed with PM implant on Sunday. -Plan to resume coumadin and Coreg tomorrow. -LVEF preserved, mild PHTN. Cont to hold off digoxin. No symptomatic tachycardia at this time Current Visit: Yes (2) Syncope Status: Acute Current Visit: Yes (3) History of atrial fibrillation Status: Chronic Current Visit: Yes (4) Diabetes mellitus Status: Chronic Current Visit: Yes (5) Hypertension Status: Chronic Current Visit: Yes (6) Hyperlipidemia Status: Chronic Current Visit: Yes (7) History of leukemia Status: Resolved Current Visit: Yes (8) Chronic anticoagulation Status: Chronic Current Visit: Yes Electrophysiology Subjective Interval history: Atrial fibrillation, with occasional bradycardia. IVCD. No recurrence of syncope. Exam - Constitutional Vitals: Period Temp Pulse Resp BP Sys/Toscano Pulse Ox Last 24 Hr 97.1 F-98.6 F 66-99 16-20 108-141/63-73 92-99 General appearance: normal weight, no acute distress - Head Head exam: Present: normal inspection, normocephalic - Eye Eye exam: Absent: conjunctival injection Pupils: Absent: dilated - ENT ENT exam: Present: normal external ear exam - Neck Neck exam: Present: normal inspection - Respiratory Respiratory exam: Present: clear to auscultation bilaterally. Absent: accessory muscle use - Cardiovascular Cardiovascular exam: Present: irregular rhythm, systolic murmur - GI/Abdominal GI/Abdominal exam: Present: normal bowel sounds - Extremities Exam Extremities exam: Present: normal inspection, normal capillary refill. Absent: edema - Back Exam Back exam: Present: normal inspection - Neurological Exam Neurological exam: Present: alert, oriented X3 - Psychiatric Psychiatric exam: Present: normal affect, normal mood - Skin Skin exam: Present: normal color, warm. Absent: cyanosis Results - Labs CBC & BMP: 11/12/16 04:34 11/12/16 04:34 Lab Results: I have reviewed the past 24 hour labs
--- NOTE | 2016-11-12 10:09 | Cardiology Progress Note ---
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 History of chronic persistent atrial fibrillation maintained on anticoagulation therapy. 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 We have withheld her Coreg, digoxin and Coumadin in anticipation of pacemaker placement on Sunday with Dr. Lutz. Telemetry overnight reveals episodes of tachycardia, as well as a +2.8 seconds. She remains asymptomatic. She has no complaints, denies chest pain or shortness of breath. ASSESSMENT/PLAN: 1. SYNCOPE - no recurrent syncope since admission. Continue to monitor closely. This appeared to be related to some pausing. 2. BRADYCARDIA, SYMPTOMATIC - all mariusz blocking agents have been held at this time. Pacemaker is planned for Sunday 3. HYPERTENSION - adequately controlled 4. ATRIAL FIBRILLATION - persistent 5. DIABETES - continue to cover with sliding scale 6. DYSLIPIDEMIA - continue lipid-lowering agent 7. HISTORY OF CLL - stable 8. CHRONIC ANTICOAGULATION - warfarin on hold in anticipation of pacemaker implantation. Monitoring PT/INR daily Exam (Progress Note) - Constitutional Vitals: Period Temp Pulse Resp BP Sys/Toscano Pulse Ox Last 24 Hr 97.1 F-98.6 F 66-99 16-20 108-141/63-73 92-99 Exam: General appearance: normal weight, no acute distress - Head Head exam: Present: normal inspection, normocephalic, atraumatic. Absent: hematoma, laceration - Eye Eye exam: Present: EOMI. Absent: conjunctival injection, nystagmus, periorbital swelling, scleral icterus, laceration to eyelids Pupils: Present: PERRL. Absent: constricted, dilated, fixed, irregular, unequal - ENT ENT exam: Present: normal exam, normal external ear exam - Neck Neck exam: Present: normal inspection. Absent: lymphadenopathy, meningismus, tenderness, thyromegaly - Respiratory Respiratory exam: Present: clear to auscultation bilaterally. Absent: accessory muscle use, chest wall tenderness - Cardiovascular Cardiovascular exam: Present: Irregularly irregular rate and rhythm. Absent: carotid bruit, gallop, JVD, rubs - GI/Abdominal GI/Abdominal exam: Present: normal bowel sounds, soft. Absent: distended, firm , guarding, hernia, mass, tenderness, rebound. - Extremities Exam Extremities exam: Present: normal inspection, normal capillary refill. Absent: calf tenderness, edema - Back Exam Back exam: Present: normal inspection. Absent: muscle spasm, vertebral tenderness - Neurological Exam Neurological exam: Present: alert, oriented X3, grossly intact without resting or intention tremor - Psychiatric Psychiatric exam: Present: normal affect, normal mood - Skin Skin exam: Present: normal color, warm, dry, intact. Absent: cyanosis, diaphoretic, rash, urticaria Result/EKG - Labs CBC & BMP: 11/12/16 04:34 11/12/16 04:34 Lab Results: I have reviewed the past 24 hour labs Labs: Laboratory Results - last 24 hr 11/11/16 11/11/16 11/11/16 11:18 15:09 20:23 WBC RBC Hgb Hct MCV MCH MCHC RDW Plt Count MPV Neut % (Auto) Lymph % (Auto) [place] % (Auto) Eos % (Auto) Baso % (Auto) Neut # (Auto) Lymph # (Auto) [place] # (Auto) Eos # (Auto) Baso # (Auto) Total Counted Immature Gran % Nucleated RBC % Immature Gran # Segmented Neutrophils Lymphocytes Monocytes Eosinophils Nucleated RBCs # Atypical Lymphocytes Platelet Estimate Hypochromasia Microcytosis Morphology Comment INR PT Patient/Control Mix Sodium Potassium Chloride Carbon Dioxide Anion Gap BUN Creatinine GFR Calculation BUN/Creatinine Ratio Glucose POC Glucose 164 H 141 H 167 H Calculated Osmolality Calcium Magnesium 11/12/16 11/12/16 11/12/16 04:34 04:34 04:34 WBC 11.1 RBC 4.45 Hgb 13.9 Hct 40.9 MCV 91.9 MCH 31 MCHC 34.0 RDW 13.0 Plt Count 197 MPV 10.8 Neut % (Auto) 30.6 L Lymph % (Auto) 55.9 H [place] % (Auto) 9.6 Eos % (Auto) 3.0 Baso % (Auto) 0.6 Neut # (Auto) 3.4 Lymph # (Auto) 6.2 H [place] # (Auto) 1.1 H Eos # (Auto) 0.3 Baso # (Auto) 0.1 Total Counted 100 Immature Gran % 0.3 Nucleated RBC % 0.0 Immature Gran # 0.03 Segmented Neutrophils 36 L Lymphocytes 56 H Monocytes 6 Eosinophils 2 Nucleated RBCs # 0.00 Atypical Lymphocytes Few Platelet Estimate Normal Hypochromasia 1+ Microcytosis 1+ Morphology Comment INR 1.2 PT Patient/Control Mix 12.6 Sodium 142 Potassium 3.9 Chloride 110 H Carbon Dioxide 22 Anion Gap 13.9 BUN 19 H Creatinine 0.60 GFR Calculation 77 BUN/Creatinine Ratio 31.00 H Glucose 105 POC Glucose Calculated Osmolality 284.1 Calcium 9.1 Magnesium 2.3 11/12/16 06:59 WBC RBC Hgb Hct MCV MCH MCHC RDW Plt Count MPV Neut % (Auto) Lymph % (Auto) [place] % (Auto) Eos % (Auto) Baso % (Auto) Neut # (Auto) Lymph # (Auto) [place] # (Auto) Eos # (Auto) Baso # (Auto) Total Counted Immature Gran % Nucleated RBC % Immature Gran # Segmented Neutrophils Lymphocytes Monocytes Eosinophils Nucleated RBCs # Atypical Lymphocytes Platelet Estimate Hypochromasia Microcytosis Morphology Comment INR PT Patient/Control Mix Sodium Potassium Chloride Carbon Dioxide Anion Gap BUN Creatinine GFR Calculation BUN/Creatinine Ratio Glucose POC Glucose 107 H Calculated Osmolality Calcium Magnesium
[2016-11-13 05:39] LABS: Basophils # 0.1 10*3/uL (0.0-0.2); Basophils % 0.7 % (0.0-0.8); Eosinophils # 0.3 10*3/uL (0.0-0.87); Hemoglobin 13.9 GM/DL (12.0-16.0); Immature Granulocytes % 0.4 %; Immature Granulocytes Absolute 0.04 #; Lymphocytes # 6.3 10*3/uL (1.4-4.0); Lymphocytes % 57.8 % (21.3-54.2); Mean Corpuscular HGB Conc 34.8 GM/DL (32-36); Mean Corpuscular Hemoglobin 32 PG (27-34); Mean Corpuscular Volume 91.3 FL (87-102); Mean Platelet Volume 10.9 FL (9.6-12.0); Monocytes # 1.1 10*3/uL (0.11-0.8); Monocytes % 10.4 % (1.7-12.7); Neutrophils % 27.7 % (38.7-73.9); Platelet Count 175 T/CUMM (130-400); Red Blood Count 4.38 MC/CUMM (3.8-5.5); Red Cell Distribution Width 12.9 % (9.3-17.3); White Blood Count 10.9 T/CUMM (4-12)
[2016-11-13] MEDS ORDERED: SODIUM CHLORIDE 0.9% 1,000 ML IV SCH (06:00)
[2016-11-13] MEDS ORDERED: ceFAZolin 1,000 MG VIAL IRRIG ONE (06:00)
[2016-11-13 06:04] LABS: INR 1.1
[2016-11-13 06:07] LABS: Calcium 8.7 MG/DL (8.5-10.1); Magnesium 2.2 MG/DL (1.8-2.4); Potassium 3.8 MMOL/L (3.5-5.1)
[2016-11-13 06:24] LABS: Eosinophils 3 % (0-10); Lymphocytes 59 % (20-55); Segmented Neutrophils 32 % (50-85); Total Cells Counted 100
[2016-11-13 06:25] LABS: Hypochromasia Slight; Microcytosis 1+; Platelet Estimate Adequate
--- NOTE | 2016-11-13 07:33 | History and Physical Update ---
Sedation H&P Update - History and Physical H&P was reviewed, the patient examined and there: are no changes in the patients condition since last H&P was completed. - Dictation Physical: refer to H&P completed by admitting physician - Physical Exam Mental Status: alert and oriented Heart: other (irregular) Lung: clear to auscultation Abdomen: within normal limits Vitals: within normal limits - Sedation Plan for Sedation: moderate Patient Consent: Procedure disscussed with patient and patinet has consented., Risks and benefits were discussed with patient,including infection,, bleeding, injury to surrounding structures, seizure, temporary nerve, Patient understands and accepts potential risks/benefits and agrees to ASA Class: III Airway Assessment: Class II: Soft palate, uvula, fauces visible
--- NOTE | 2016-11-13 07:45 | EKG Report ---
Stationary ECG Study [facility] Test Date: 11/13/2016 7:45:09 AM Pat Name: MICHELET FINE Department: Room: 277 Gender: F Design Engineer: ADRIÁN : [id number] Requested by: Brennan Lutz Order Number: [id number] Reading MD: GHULAM ESCOBAR Intervals [place] Rate: 63 P: 999 IN: 0 QRS: -78 QRSD: 147 T: 73 QT: 438 QTc: 446 Interpretive Statements ATRIAL FIBRILLATION MARKED LEFT AXIS DEVIATION RIGHT BUNDLE BRANCH BLOCK POSSIBLE ANTERIOR MYOCARDIAL INFARCTION, OF INDETERMINATE AGE Electronically Signed On 11-13-16 09:01:25 CDT by GHULAM ESCOBAR [email or web address]
[2016-11-13] MEDS ORDERED: diphenhydrAMINE CAP 25 MG CAPSULE PO ONE (09:00)
[2016-11-13] MEDS ORDERED: DIAZEPAM 5 MG TABLET PO ONE (09:00)
[2016-11-13] MEDS: POTASSIUM CHLORIDE 20 MEQ TABLET PO SCH ×2 (09:29→21:30)
[2016-11-13] MEDS: LISINOPRIL 20 MG TABLET PO SCH (09:30)
[2016-11-13] MEDS: glipiZIDE 5 MG TABLET PO SCH ×2 (09:30→21:30)
[2016-11-13] MEDS: PANTOPRAZOLE 40 MG TABLET PO SCH (09:30)
[2016-11-13] MEDS: GEMFIBROZIL 600 MG TABLET PO SCH ×2 (09:30→21:30)
[2016-11-13] MEDS: OMEGA 3 ACID ETHYL ESTERS 1 GM CAPSULE PO SCH (09:30)
[2016-11-13] MEDS: INSULIN LISPRO 100 UNIT/ML SUBCUT SCH ×4 (09:49→21:37)
[2016-11-13] MEDS ORDERED: HEPARIN/NACL 0.9% 2 UNITS/ML 500 ML IV ONE (13:39)
[2016-11-13] MEDS ORDERED: LIDOCAINE 1% 20 ML VIAL ONE (13:39)
[2016-11-13] MEDS ORDERED: ceFAZolin 1,000 MG VIAL ONE (13:39)
[2016-11-13] MEDS ORDERED: fentaNYL 100 MCG/2 ML VIAL ONE (13:54)
[2016-11-13] MEDS ORDERED: MIDAZOLAM 2 MG/2 ML VIAL ONE (13:54)
[2016-11-13] MEDS ORDERED: TISSUE ADHESIVE 1 EACH APPLICATOR TOP ONE (14:20)
[2016-11-13] MEDS ORDERED: oxyCODONE/ACETAMINOPHEN 5-325 MG TABLET PO PRN (14:30)
--- NOTE | 2016-11-13 14:41 | Cardiac Pacemaker ---
- Preoperative diagnosis Date of Procedure:: 11/13/16 Preoperative Diagnosis: Documented nonreversible symptomatic bradycardia due to , sinus node dysfunction Pre-op Diagnosis: Permanent AF, symptomatic bradycardia Post-op diagnosis: same Procedure: PROCEDURE SUMMARY VVI pacemaker implant from left axillary vein access. PLAN Bed rest for 4 hours. Routine post pacemaker implant site care and activity restrictions. Do not remove pressure dressing until AM. Portable CXR, EKG stat. CXR PA/Lat, device interrogation in AM. Ancef 1g iv. q8h x2. PROCEDURE Informed consent was obtained and a timeout was performed prior to the procedure. The patient was continuously monitored by ECG, pulse oxymetry and NIBP. 1g iv. Ancef was administered prior to the procedure for antibiotic prophylaxis. Moderate conscious sedation was initiated and maintained with iv. Versed and Fentanyl, for 33 minutes. The left pectoral area was meticulously prepared with ChloroPrep surgical scrub. Sterile draping was applied and Ioban was used to cover the operation site. The image intensifier was draped with a sterile bag and positioned over the patient's chest. After infiltration with 1% lidocaine, an incision was made in the left infraclavicular area, parallel to the deltopectoral groove. The incision was carried down to the level of the pectoral fascia. A subcutaneous pocket was then created with electrocautery and blunt dissection. Hemostasis was then achieved with electrocautery. A micropuncture needle was used to access the left axillary vein under fluoroscopic guidance. The microfilament was used to introduce the micropuncture sheath, which the was used to introduce and advance a long hydrophylic guidewire into the inferior vena cava. A 9 Fr sheath was introduced over the guidewire. The dilator was removed. The right ventricular pacemaker lead was introduced through the sheath. The sheath was then peeled away. The curved stylet was used to move the lead into the right ventricular outflow tract. The stylet was then replaced with a straight stylet and the lead was moved into a stable position on the right ventricular septum. Adequate sensing and pacing threshold was confirmed. The active fixation mechanism was then deployed. Stable signal and pacing threshold was noted, with decrease in pacing impedance. No extracardiac stimulation was noted with high output pacing. The lead was then anchored to the subcutaneous tissue with 2-0 nonabsorbable suture, using the anchoring sleeve near the point of entry to the vein. The retained guidewire was removed. The pacemaker generator was attached to the lead and sealed in the prescribed manner. The wound was flushed with Ancef . The generator was placed into the pocket and tied to the pectoral fascia using 2-0 nonabsorbable suture. Stable lead positions were confirmed with fluoroscopy. The wound was closed using a double layer of 2-0 absorbable Vicryl sutures, followed by a subcuticular running suture with 4-0 Monocryl, then Exofin. A sterile, then a pressure dressing was applied. The device was then interrogated and programmed as detailed below. Device Type SN Location Medtronic Advisa SR VVI pacemaker [id number] Left infraclavicular Lead Position Type SN P/R Threshold Impedance RV RV septum Medtronic 5076-58 [id number] 4.8 mV 0.2 V @ 0.5 ms 656 Ohm Bradycardia settings VVIR 60/100 The implanted system is MRI conditional. Anesthesia: moderate conscious sedation Surgeon / Physician: Brennan Lutz Labor Mediator: other (Benjamin) Estimated blood loss: minimal Specimens: none sent Condition: stable Disposition: floor - Medications / Follow-up
--- NOTE | 2016-11-13 15:00 | XRay Report ---
History: Pacemaker lead placement Date: 11/13/2016 at 2:36 PM Study: Chest x-ray AP portable Comparison exam: November 09, 2016 chest x-ray A left subclavian transvenous pacemaker is generally intact and appears to be in satisfactory position. There is no pneumothorax. There is mild cardiomegaly. There is no mediastinal mass. The pulmonary vasculature is not engorged. There is no gross pleural effusion. There is no acute infiltrate. There are some scattered emphysematous changes within the lungs. The osseous structures are similar. There is some postsurgical soft tissue emphysema in the left supraclavicular area. Impression: No evidence of a pneumothorax following pacemaker placement. Pacemaker lead appears to be in generally satisfactory position. Stable cardiomegaly PROCEDURE INTERPRETED AT [facility] DEPARTMENT OF RADIOLOGY Final Report Signed by: Dr. Maryam Rose
--- NOTE | 2016-11-13 15:15 | EKG Report ---
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
[2016-11-13] MEDS: FUROSEMIDE 20 MG TABLET PO SCH (17:54)
[2016-11-13] MEDS: WARFARIN 5 MG TABLET PO SCH (18:44)
[2016-11-14 06:23] LABS: Basophils # 0.1 10*3/uL (0.0-0.2); Basophils % 0.8 % (0.0-0.8); Eosinophils # 0.2 10*3/uL (0.0-0.87); Eosinophils % 2.3 % (0.00-10.9); Hematocrit 43.5 VOL% (35.7-47.0); Hemoglobin 14.1 GM/DL (12.0-16.0); Immature Granulocytes % 0.3 %; Immature Granulocytes Absolute 0.03 #; Lymphocytes # 3.8 10*3/uL (1.4-4.0); Lymphocytes % 44.1 % (21.3-54.2); Mean Corpuscular HGB Conc 32.4 GM/DL (32-36); Mean Corpuscular Hemoglobin 31 PG (27-34); Mean Corpuscular Volume 95.4 FL (87-102); Mean Platelet Volume 10.7 FL (9.6-12.0); Monocytes % 11.4 % (1.7-12.7); Neutrophils # 3.5 10*3/uL (1.4-7.4); Neutrophils % 41.1 % (38.7-73.9); Platelet Count 167 T/CUMM (130-400); Red Blood Count 4.56 MC/CUMM (3.8-5.5); Red Cell Distribution Width 13.1 % (9.3-17.3); White Blood Count 8.6 T/CUMM (4-12)
[2016-11-14 06:29] LABS: INR 1.1; PT Patient Result 11.8 SECS
[2016-11-14 06:30] LABS: INR 1.1; PT Patient Result 11.9 SECS
[2016-11-14 07:00] LABS: Calcium 8.6 MG/DL (8.5-10.1); Magnesium 2.4 MG/DL (1.8-2.4); Osmolality,Calculated 289.1 MOS/KG (273-304); Potassium 4.4 MMOL/L (3.5-5.1)
[2016-11-14] MEDS: GEMFIBROZIL 600 MG TABLET PO SCH ×2 (08:52→20:51)
[2016-11-14] MEDS: glipiZIDE 5 MG TABLET PO SCH ×2 (08:52→20:51)
[2016-11-14] MEDS: PANTOPRAZOLE 40 MG TABLET PO SCH (08:52)
[2016-11-14] MEDS: INSULIN LISPRO 100 UNIT/ML SUBCUT SCH ×4 (08:52→20:51)
[2016-11-14] MEDS: OMEGA 3 ACID ETHYL ESTERS 1 GM CAPSULE PO SCH (08:52)
[2016-11-14] MEDS: POTASSIUM CHLORIDE 20 MEQ TABLET PO SCH ×2 (08:52→20:51)
[2016-11-14] MEDS: LISINOPRIL 20 MG TABLET PO SCH (08:52)
[2016-11-14] MEDS: FUROSEMIDE 20 MG TABLET PO SCH (08:53)
--- NOTE | 2016-11-14 09:33 | XRay Report ---
XR chest 2V Indication: Lead placement. Chest 2 views: Comparison yesterday. Single-lead pacemaker device is stable. Heart size remains minimally enlarged with continued thoracic aortic tortuosity and atheromatous disease. Interstitial coarsening of the lungs has decreased, and no pneumothorax shown. No discrete infiltrates. Impression: Decreased pulmonary edema. Otherwise no change. PROCEDURE INTERPRETED AT [facility] DEPARTMENT OF RADIOLOGY Final Report Signed by: Sahil Robison M.D.
--- NOTE | 2016-11-14 12:18 | Discharge Summary ---
Hospital Course - Hospital Course Hospital Course: BURNT LIME DRAWER: DR. LAINEZ ([place]). DR. GHULAM PONCE ([facility]) PCP: DR. NORRIS Ms. Guerra is a 86 year old female who has been followed by Dr. Lainez in the past. She has history of atrial fibrillation, diabetes mellitus, hypertension, hyperlipidemia, chronic anticoagulation, leukemia in remission. Patient was admitted November 09, 2016 for evaluation of syncope and bradycardia. She had been followed outpatient by Dr. Norris for syncope. She was noted to have atrial fibrillation with several long pauses on 24-hour Holter monitor. Her digoxin was held as well as her beta-valente. She continued to have long pauses. For this reason, November 13, 2016 Dr. Lutz performed the following: PROCEDURE SUMMARY VVI pacemaker implant from left axillary vein access. She tolerated the procedure well without complication. She was returned to our telemetry unit in stable condition. This morning, her device was interrogated and found to be working appropriately. Chest x-ray reveals pacemaker in good position. Her labs are stable and she is anxious for release home. We had a long discussion with the patient and her daughter regarding the need for swing bed. However, she has declined and insisted that she be discharged to her home. Will ask that home health be arranged. Her daughter is present and understands she will be discharged home. She will be given a 1 week follow-up appoint with Dr. Lutz for device interrogation. At that visit she will have the following labs obtained: BMP, magnesium, CBC and PT/INR. EKG. She will be given a 6 weeks follow-up appoint with Dr. Ghulam Ponce as the patient is now interested in transitioning her care to her. Discharge medications include the following: Coreg 12.5 mg orally twice daily Warfarin 2.5 mg orally each evening Amlodipine 5 mg orally daily Lasix 20 mg orally daily Gemfibrozil 600 mg orally daily Lisinopril 20 mg orally daily Earp-3 fatty acids 1000 mg orally daily Potassium chloride 20 mEq orally twice daily Glipizide 5 mg orally twice daily - Time spent with patient Time with patient DS: Greater than 30 minutes Diagnosis - Discharge Diagnosis (1) Symptomatic bradycardia Status: Resolved (2) Syncope Status: Resolved (3) Chronic anticoagulation Status: Chronic (4) Diabetes mellitus Status: Chronic (5) History of atrial fibrillation Status: Chronic (6) Hyperlipidemia Status: Chronic (7) Hypertension Status: Chronic (8) History of leukemia Status: Resolved (9) Pacemaker Status: Chronic Specialty Discharge - Follow Up or Referrals Follow up with: Brennan Lutz MD [Physician] - 1 Week (EKG. PT/INR, BMP, Mg, CBC) Ghulam Ponce MD [Physician] - (4-6 weeks) Discharge Plan - Discharge Data Disposition: Home Health Service Condition at Discharge: Stable Discharge Diet: heart healthy Activity: other (Post pacemaker expectations) Hygiene: other (Post pacemaker expectations) Weight Bearing at Discharge: other (Post pacemaker expectations) Driving: not until seen by doctor Contact your physician if you experience:: fever over 101, Difficulty voiding, Redness or swelling, Nausea/Vomiting, Shortness of breath, Bleeding, pain uncontrolled by pain medications - Discharge Medications Continue Potassium Chloride [K-Tab ER] 20 meq PO BID Carvedilol 12.5 mg PO BID amLODIPine [Norvasc] 5 mg PO DAILY Warfarin [Coumadin] 2.5 mg PO DAILY@1800 glipiZIDE [Glipizide] 5 mg PO BID Earp-3 Fatty Acids/Fish Oil [Fish Oil 1,000 mg Softgel] 1 capsule PO DAILY Lisinopril 20 mg PO DAILY Gemfibrozil 600 mg PO BID Furosemide 20 mg PO DAILY Discontinued Digoxin 0.5 tablet PO DAILY@1800 - Follow Up or Referral - Forms/Instructions Additional Discharge Instructions: Please arrange home health at discharge. We will initiate but please have her PCP follow/manage. Thanks Exam - Constitutional Vitals: Period Temp Pulse Resp BP Sys/Toscano Pulse Ox Last 24 Hr 97.2 F-99.2 F 61-83 16-78 103-153/45-96 92-98 Exam: General: [Appears well with no apparent distress.] [Pleasant and cooperative. ] [Appears comfortable.] HEENT: [PERRL, normocephalic, atraumatic. Mucous membranes moist. No jaundice noted. Conjunctiva moist and clear, sclerae anicteric] Neck: No JVD/HJR, no thyromegaly or lymphadenopathy noted. No carotid bruit appreciated Cardiac: [Regular rate and rhythm.] [No murmur rub or gallop.] Chest: Left precordial area reveals only minimal ecchymosis and minimal edema around pacemaker insertion site. Chest wall movements symmetrical. Lungs: [Clear to auscultation without accessory muscle use to assist the respiratory pattern.] Abdomen: Soft, bowel sounds normoactive. Nontender and nondistended. No abdominal bruit or thrill noted. No masses noted. Musculoskeletal: No fluid collection. Decreased range of motion is noted. Extremities: Wearing left arm sling. No clubbing, cyanosis noted. [ No edema noted.] Upper extremity pulses 2+. Lower extremity pulses 2+. Capillary refill less than 3 seconds. Skin: No unusual lesions or rashes. No skin breakdown appreciated. Neuro: Awake, alert and oriented 3. Moves all extremities well without hemiparesis or paralysis. No essential tremor is appreciated. Discharge Results Procedures and tests throughout hospitalization: Pending Orders 11/15/16 04:00 CBC [Comp Blood Count Auto Diff] IN AM PT [Prothrombin Time] IN AM 11/16/16 04:00 CBC [Comp Blood Count Auto Diff] IN AM PT [Prothrombin Time] IN AM 11/17/16 04:00 CBC [Comp Blood Count Auto Diff] IN AM Labs on day of discharge: Labs from last 24 hours 11/14/16 11/14/16 11/14/16 11:37 07:09 05:45 WBC RBC Hgb Hct MCV MCH MCHC RDW Plt Count MPV Neut % (Auto) Lymph % (Auto) [place] % (Auto) Eos % (Auto) Baso % (Auto) Neut # (Auto) Lymph # (Auto) [place] # (Auto) Eos # (Auto) Baso # (Auto) Immature Gran % Nucleated RBC % Immature Gran # Nucleated RBCs # INR 1.1 PT Patient/Control Mix 11.9 Sodium Potassium Chloride Carbon Dioxide Anion Gap BUN Creatinine GFR Calculation BUN/Creatinine Ratio Glucose POC Glucose 165 H 151 H Calculated Osmolality Calcium Magnesium 11/14/16 11/14/16 11/14/16 05:45 05:45 05:45 WBC 8.6 RBC 4.56 Hgb 14.1 Hct 43.5 MCV 95.4 MCH 31 MCHC 32.4 RDW 13.1 Plt Count 167 MPV 10.7 Neut % (Auto) 41.1 Lymph % (Auto) 44.1 [place] % (Auto) 11.4 Eos % (Auto) 2.3 Baso % (Auto) 0.8 Neut # (Auto) 3.5 Lymph # (Auto) 3.8 [place] # (Auto) 1.0 H Eos # (Auto) 0.2 Baso # (Auto) 0.1 Immature Gran % 0.3 Nucleated RBC % 0.0 Immature Gran # 0.03 Nucleated RBCs # 0.00 INR 1.1 PT Patient/Control Mix 11.8 Sodium 142 Potassium 4.4 Chloride 107 Carbon Dioxide 26 Anion Gap 13.4 BUN 20 H Creatinine 0.80 GFR Calculation 63 BUN/Creatinine Ratio 25.00 H Glucose 178 H POC Glucose Calculated Osmolality 289.1 Calcium 8.6 Magnesium 2.4 11/13/16 11/13/16 20:21 16:04 WBC RBC Hgb Hct MCV MCH MCHC RDW Plt Count MPV Neut % (Auto) Lymph % (Auto) [place] % (Auto) Eos % (Auto) Baso % (Auto) Neut # (Auto) Lymph # (Auto) [place] # (Auto) Eos # (Auto) Baso # (Auto) Immature Gran % Nucleated RBC % Immature Gran # Nucleated RBCs # INR PT Patient/Control Mix Sodium Potassium Chloride Carbon Dioxide Anion Gap BUN Creatinine GFR Calculation BUN/Creatinine Ratio Glucose POC Glucose 177 H 77 Calculated Osmolality Calcium Magnesium - Imaging and Cardiology Cardiology Procedure: report reviewed by ut Procedure: Chest x-ray: report reviewed by ut DS: Provider Date of admission: 11/10/16 11:08 Primary care physician: Iván Norris MD Attending physician on admission: Ghulam Ponce, Consults: 11/09/16 15:42 Consult to Pharmacy [CONS] Routine Reason for Pharmacy Consult: Adjust Meds Renal Funct 11/14/16 09:32 PT [Consult to Physical Therapy] [CONS] Routine Reason for Physical Therapy: Evaluate and Treat Discharging clinician: Isatu Isbell NP Expected date of discharge: 11/14/16
--- NOTE | 2016-11-14 12:58 | Electrophysiology Progress Not ---
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 Hypertension hyperlipidemia CLL type 2 diabetes mellitus. -11/13/2016: VVI PM implant -Discussed post pacemaker implant activity limitations and implant site care. -The Coumadin was resumed. Follow-up with the Coumadin clinic. -Follow-up with EP, Dr. Lutz in 1 week for wound, pacemaker check. Current Visit: Yes (2) Syncope Status: Resolved Current Visit: Yes (3) History of atrial fibrillation Status: Chronic Current Visit: Yes (4) Diabetes mellitus Status: Chronic Current Visit: Yes (5) Hypertension Status: Chronic Current Visit: Yes (6) Hyperlipidemia Status: Chronic Current Visit: Yes (7) History of leukemia Status: Resolved Current Visit: Yes (8) Chronic anticoagulation Status: Chronic Current Visit: Yes Electrophysiology Subjective Interval history: Atrial fibrillation, with demand ventricular pacing telemetry. There is no hematoma, removed pressure dressing. X-ray, device interrogation confirmed normal lead position and parameters Exam - Constitutional Vitals: Period Temp Pulse Resp BP Sys/Toscano Pulse Ox Last 24 Hr 97.2 F-99.2 F 61-83 16-78 103-153/45-96 92-98 General appearance: normal weight, no acute distress - Head Head exam: Present: normal inspection, normocephalic - Eye Eye exam: Absent: conjunctival injection Pupils: Absent: dilated - ENT ENT exam: Present: normal external ear exam - Neck Neck exam: Present: normal inspection - Respiratory Respiratory exam: Present: clear to auscultation bilaterally - Cardiovascular Cardiovascular exam: Present: irregular rhythm - GI/Abdominal GI/Abdominal exam: Present: normal bowel sounds - Extremities Exam Extremities exam: Present: normal inspection, normal capillary refill. Absent: edema - Back Exam Back exam: Present: normal inspection - Neurological Exam Neurological exam: Present: alert, oriented X3 - Psychiatric Psychiatric exam: Present: normal affect, normal mood - Skin Skin exam: Present: normal color, warm. Absent: cyanosis Results - Labs CBC & BMP: 11/14/16 05:45 11/14/16 05:45 Lab Results: I have reviewed the past 24 hour labs Specialty Discharge - Follow Up or Referrals Follow up with: Brennan Lutz MD [Physician] - 1 Week (EKG. PT/INR, BMP, Mg, CBC) Francy Ponce MD [Physician] - (4-6 weeks)
[2016-11-14] MEDS: WARFARIN 5 MG TABLET PO SCH (18:12)
[2016-11-14] MEDS: DOCUSATE SODIUM 100 MG CAPSULE PO PRN (20:51)
[2016-11-15 04:42] LABS: Basophils # 0.1 10*3/uL (0.0-0.2); Basophils % 0.8 % (0.0-0.8); Eosinophils # 0.3 10*3/uL (0.0-0.87); Eosinophils % 2.9 % (0.00-10.9); Hematocrit 41.1 VOL% (35.7-47.0); Hemoglobin 13.5 GM/DL (12.0-16.0); Immature Granulocytes % 0.4 %; Immature Granulocytes Absolute 0.04 #; Lymphocytes # 5.7 10*3/uL (1.4-4.0); Lymphocytes % 50.6 % (21.3-54.2); Mean Corpuscular HGB Conc 32.8 GM/DL (32-36); Mean Corpuscular Hemoglobin 31 PG (27-34); Mean Corpuscular Volume 93.8 FL (87-102); Mean Platelet Volume 10.6 FL (9.6-12.0); Monocytes # 1.5 10*3/uL (0.11-0.8); Neutrophils # 3.6 10*3/uL (1.4-7.4); Neutrophils % 32.3 % (38.7-73.9); Platelet Count 135 T/CUMM (130-400); Red Blood Count 4.38 MC/CUMM (3.8-5.5); White Blood Count 11.2 T/CUMM (4-12)
[2016-11-15 04:52] LABS: INR 1.3; PT Patient Result 13.4 SECS
[2016-11-15 05:47] LABS: Eosinophils 2 % (0-10); Hypochromasia 1+; Lymphocytes 45 % (20-55); Platelet Estimate Normal; Segmented Neutrophils 40 % (50-85); Total Cells Counted 100
[2016-11-15 05:48] LABS: Microcytosis 1+
--- NOTE | 2016-11-15 07:55 | Electrophysiology Progress Not ---
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 Hypertension hyperlipidemia CLL type 2 diabetes mellitus. -11/13/2016: VVI PM implant -Discussed post pacemaker implant activity limitations and implant site care. -The Coumadin was resumed. Follow-up with the Coumadin clinic. -Follow-up with EP, Dr. Lutz in 1 week for wound, pacemaker check. Current Visit: Yes (2) Syncope Status: Resolved Current Visit: Yes (3) History of atrial fibrillation Status: Chronic Current Visit: Yes (4) Diabetes mellitus Status: Chronic Current Visit: Yes (5) Hypertension Status: Chronic Current Visit: Yes (6) Hyperlipidemia Status: Chronic Current Visit: Yes (7) History of leukemia Status: Resolved Current Visit: Yes (8) Chronic anticoagulation Status: Chronic Current Visit: Yes Electrophysiology Subjective Interval history: She is feeling fine. Atrial fibrillation, demand ventricular pacing on telemetry. No hematoma. Coumadin was restarted yesterday, INR is still subtherapeutic. Exam - Constitutional Vitals: Period Temp Pulse Resp BP Sys/[place] Pulse Ox Last 24 Hr 96.5 F-98.9 F 70-92 16-20 133-159/67-88 95-99 General appearance: normal weight, no acute distress - Head Head exam: Present: normal inspection, normocephalic - Eye Eye exam: Absent: conjunctival injection Pupils: Absent: dilated - ENT ENT exam: Present: normal external ear exam - Neck Neck exam: Present: normal inspection - Respiratory Respiratory exam: Present: clear to auscultation bilaterally - Cardiovascular Cardiovascular exam: Present: irregular rhythm, systolic murmur - GI/Abdominal GI/Abdominal exam: Present: normal bowel sounds - Extremities Exam Extremities exam: Present: normal inspection, normal capillary refill. Absent: edema - Back Exam Back exam: Present: normal inspection - Neurological Exam Neurological exam: Present: alert, oriented X3 - Psychiatric Psychiatric exam: Present: normal affect, normal mood - Skin Skin exam: Present: normal color, warm. Absent: cyanosis, diaphoretic Results - Labs CBC & BMP: 11/15/16 04:26 11/14/16 05:45 Lab Results: I have reviewed the past 24 hour labs Specialty Discharge - Follow Up or Referrals Follow up with: Brennan Lutz MD [Physician] - 1 Week (EKG. PT/INR, BMP, Mg, CBC) Franyc Ponce MD [Physician] - (4-6 weeks)
[2016-11-15] MEDS: INSULIN LISPRO 100 UNIT/ML SUBCUT SCH ×2 (08:11→13:07)
[2016-11-15] MEDS: FUROSEMIDE 20 MG TABLET PO SCH (09:03)
[2016-11-15] MEDS: PANTOPRAZOLE 40 MG TABLET PO SCH (09:04)
[2016-11-15] MEDS: OMEGA 3 ACID ETHYL ESTERS 1 GM CAPSULE PO SCH (09:04)
[2016-11-15] MEDS: POTASSIUM CHLORIDE 20 MEQ TABLET PO SCH (09:05)
[2016-11-15] MEDS: glipiZIDE 5 MG TABLET PO SCH (09:05)
[2016-11-15] MEDS: GEMFIBROZIL 600 MG TABLET PO SCH (09:06)
[2016-11-15] MEDS: LISINOPRIL 20 MG TABLET PO SCH (09:23)
--- NOTE | 2016-11-15 13:39 | Discharge Summary ---
Hospital Course - Hospital Course Hospital Course: OCCUPATIONAL THERAPIST: DR. LAINZE ([place]). DR. GHULAM PONCE ([facility]) PCP: DR. NORRIS Ms. Guerra is a 86 year old female who has been followed by Dr. Lainez in the past. She has history of atrial fibrillation, diabetes mellitus, hypertension, hyperlipidemia, chronic anticoagulation, leukemia in remission. Patient was admitted November 09, 2016 for evaluation of syncope and bradycardia. She had been followed outpatient by Dr. Norris for syncope. She was noted to have atrial fibrillation with several long pauses on 24-hour Holter monitor. Her digoxin was held as well as her beta-valente. She continued to have long pauses. For this reason, November 13, 2016 Dr. Lutz performed the following: PROCEDURE SUMMARY VVI pacemaker implant from left axillary vein access. She tolerated the procedure well without complication. She was returned to our telemetry unit in stable condition. This morning, her device was interrogated and found to be working appropriately. Chest x-ray reveals pacemaker in good position. Her labs are stable and she is anxious for release home. We had a long discussion with the patient and her daughter regarding the need for swing bed. However, she has declined and insisted that she be discharged to her home. Will ask that home health be arranged. Her daughter is present and understands she will be discharged home. She will be given a 1 week follow-up appoint with Dr. Lutz for device interrogation. At that visit she will have the following labs obtained: BMP, magnesium, CBC and PT/INR. EKG. She will be given a 6 weeks follow-up appoint with Dr. Ghulam Ponce as the patient is now interested in transitioning her care to her. Discharge medications include the following: Coreg 12.5 mg orally twice daily Warfarin 2.5 mg orally each evening Amlodipine 5 mg orally daily Lasix 20 mg orally daily Gemfibrozil 600 mg orally daily Lisinopril 20 mg orally daily [place]-3 fatty acids 1000 mg orally daily Potassium chloride 20 mEq orally twice daily Glipizide 5 mg orally twice daily - Time spent with patient Time with patient DS: Greater than 30 minutes Diagnosis - Discharge Diagnosis (1) Symptomatic bradycardia Status: Resolved (2) Syncope Status: Resolved (3) Chronic anticoagulation Status: Chronic (4) Diabetes mellitus Status: Chronic (5) History of atrial fibrillation Status: Chronic (6) Hyperlipidemia Status: Chronic (7) Hypertension Status: Chronic (8) History of leukemia Status: Resolved (9) Pacemaker Status: Chronic Specialty Discharge - Follow Up or Referrals Follow up with: Brennan Lutz MD [Physician] - 11/21/16 3:00 pm () Ghulam Ponce MD [Physician] - 12/20/16 1:30 pm () Discharge Plan - Discharge Data Disposition: Disch/Xfer to Snf Condition at Discharge: Stable Discharge Diet: heart healthy Activity: other (Post cath expectations) Hygiene: no restrictions Weight Bearing at Discharge: other (Post cath expectations) Driving: not until seen by doctor Contact your physician if you experience:: fever over 101, Difficulty voiding, Redness or swelling, Nausea/Vomiting, Shortness of breath, Bleeding, pain uncontrolled by pain medications - Discharge Medications Continue Potassium Chloride [K-Tab ER] 20 meq PO BID Carvedilol 12.5 mg PO BID amLODIPine [Norvasc] 5 mg PO DAILY Warfarin [Coumadin] 2.5 mg PO DAILY@1800 glipiZIDE [Glipizide] 5 mg PO BID [place]-3 Fatty Acids/Fish Oil [Fish Oil 1,000 mg Softgel] 1 capsule PO DAILY Lisinopril 20 mg PO DAILY Gemfibrozil 600 mg PO BID Furosemide 20 mg PO DAILY Discontinued Digoxin 0.5 tablet PO DAILY@1800 - Follow Up or Referral Follow Up: Brennan Lutz MD [Physician] - 11/21/16 3:00 pm () Ghulam Ponce MD [Physician] - 12/20/16 1:30 pm () - Forms/Instructions Exam - Constitutional Vitals: Period Temp Pulse Resp BP Sys/[place] Pulse Ox Last 24 Hr 96.5 F-98.9 F 70-92 16-20 133-159/66-88 95-99 Exam: General: [Appears well with no apparent distress.] [Pleasant and cooperative. ] [Appears comfortable.] HEENT: [PERRL, normocephalic, atraumatic. Mucous membranes moist. No jaundice noted. Conjunctiva moist and clear, sclerae anicteric] Neck: No JVD/HJR, no thyromegaly or lymphadenopathy noted. No carotid bruit appreciated Cardiac: [Regular rate and rhythm.] [No murmur rub or gallop.] Chest: Left precordial area reveals only minimal ecchymosis and minimal edema around pacemaker insertion site. Chest wall movements symmetrical. Lungs: [Clear to auscultation without accessory muscle use to assist the respiratory pattern.] Abdomen: Soft, bowel sounds normoactive. Nontender and nondistended. No abdominal bruit or thrill noted. No masses noted. Musculoskeletal: No fluid collection. Decreased range of motion is noted. Extremities: Wearing left arm sling. No clubbing, cyanosis noted. [ No edema noted.] Upper extremity pulses 2+. Lower extremity pulses 2+. Capillary refill less than 3 seconds. Skin: No unusual lesions or rashes. No skin breakdown appreciated. Neuro: Awake, alert and oriented 3. Moves all extremities well without hemiparesis or paralysis. No essential tremor is appreciated. Discharge Results Procedures and tests throughout hospitalization: Pending Orders 11/16/16 04:00 CBC [Comp Blood Count Auto Diff] IN AM PT [Prothrombin Time] IN AM 11/17/16 04:00 CBC [Comp Blood Count Auto Diff] IN AM Labs on day of discharge: Labs from last 24 hours 11/15/16 11/15/16 11/15/16 11:12 07:16 04:26 WBC RBC Hgb Hct MCV MCH MCHC RDW Plt Count MPV Neut % (Auto) Lymph % (Auto) [place] % (Auto) Eos % (Auto) Baso % (Auto) Neut # (Auto) Lymph # (Auto) [place] # (Auto) Eos # (Auto) Baso # (Auto) Total Counted Immature Gran % Nucleated RBC % Immature Gran # Segmented Neutrophils Lymphocytes Monocytes Eosinophils Nucleated RBCs # Platelet Estimate Hypochromasia Microcytosis Morphology Comment INR 1.3 PT Patient/Control Mix 13.4 POC Glucose 171 H 118 H 11/15/16 11/14/16 11/14/16 04:26 20:25 17:36 WBC 11.2 D RBC 4.38 Hgb 13.5 Hct 41.1 MCV 93.8 MCH 31 MCHC 32.8 RDW 13.0 Plt Count 135 MPV 10.6 Neut % (Auto) 32.3 L Lymph % (Auto) 50.6 [place] % (Auto) 13.0 H Eos % (Auto) 2.9 Baso % (Auto) 0.8 Neut # (Auto) 3.6 Lymph # (Auto) 5.7 H [place] # (Auto) 1.5 H Eos # (Auto) 0.3 Baso # (Auto) 0.1 Total Counted 100 Immature Gran % 0.4 Nucleated RBC % 0.0 Immature Gran # 0.04 Segmented Neutrophils 40 L Lymphocytes 45 Monocytes 13 Eosinophils 2 Nucleated RBCs # 0.00 Platelet Estimate Normal Hypochromasia 1+ Microcytosis 1+ Morphology Comment INR PT Patient/Control Mix POC Glucose 147 H 188 H DS: Provider Date of admission: 11/10/16 11:08 Primary care physician: Iván Norris MD Attending physician on admission: Ghulam Ponce, Consults: 11/09/16 15:42 Consult to Pharmacy [CONS] Routine Reason for Pharmacy Consult: Adjust Meds Renal Funct 11/14/16 09:32 PT [Consult to Physical Therapy] [CONS] Routine Reason for Physical Therapy: Evaluate and Treat 11/14/16 14:02 Consult to Case Mgmt/Social Srvs [CONS] Routine Reason for Case Mgmt/Social Srvs: Swingbed/SNF/Senior Living Discharging clinician: Isatu Isbell NP Expected date of discharge: 11/15/16
[2016-11-15 15:36] VITALS: BP 168/85
== END 2016-11-15 15:50 | disposition swing bed (61) | DRG 243 ==
LOC: N.TELES
PROVIDERS: ADMIT Internal Medicine Cardiovascular Disease; ATTEND Internal Medicine Cardiovascular Disease

== ENCOUNTER 2019-06-07 19:12 | Inpatient (IN) ==
[2019-06-07] MEDS ORDERED: ONDANSETRON 4 MG/2 ML VIAL IV STA (19:49)
[2019-06-07] MEDS ORDERED: ALBUTEROL/IPRATROPIUM 3 ML NEB RESP TX STA (19:49)
[2019-06-07 21:20] LABS: Basophils # 0.1 10*3/uL (0.0-0.2); Basophils % 0.4 % (0.0-0.8); Eosinophils # 0.1 10*3/uL (0.0-0.87); Eosinophils % 0.3 % (0.00-10.9); Hematocrit 39.4 VOL% (35.7-47.0); Hemoglobin 12.6 GM/DL (12.0-16.0); Immature Granulocytes % 0.4 %; Immature Granulocytes Absolute 0.08 #; Lymphocytes # 4.3 10*3/uL (1.4-4.0); Lymphocytes % 23.2 % (21.3-54.2); Mean Platelet Volume 10.4 FL (9.6-12.0); Monocytes % 10.2 % (1.7-12.7); Neutrophils % 65.5 % (38.7-73.9); Platelet Count 154 T/CUMM (130-400); Red Blood Count 4.19 MC/CUMM (3.8-5.5); Red Cell Distribution Width 14.4 % (9.3-17.3); White Blood Count 18.7 T/CUMM (4-12)
[2019-06-07 21:41] LABS: Apearance,Urine CLOUDY (Clear); Bacteria,Urine Many /HPF (Few); Bilirubin,Urine Negative (Negative); Blood, Urine Large mg/dL (Negative); Glucose,Urine (UA) Negative (Negative); Ketones,Urine Negative (Negative); Nitrite,Urine Positive (Negative); Protein,Urine 30 MG/DL; RBC,Urine 12 /HPF (0-4); Squamous Epithelial Cell,Urine Occasional /HPF (0-10); Urine Color Yellow (Yellow); Urine Specific Gravity 1.009 (1.001-1.035); Urine Urobilinogen < 2.0 EU/DL (0.2-1.0); WBC,Urine 324 /HPF (0-6)
[2019-06-07 21:45] LABS: Alanine Aminotransferase 14 U/L (13-56); Albumin 3.3 G/DL (3.4-5.0); Alkaline Phosphatase 70 U/L (45-117); Amylase 29 U/L (25-115); Aspartate Amino Transferase 20 U/L (0-37); Blood Urea Nitrogen 25 MG/DL (7-18); Calcium 8.5 MG/DL (8.5-10.1); Estimated Glom Filtration Rate 54 ML/MIN; Glucose 120 MG/DL (74-106); Osmolality,Calculated 285.3 MOS/KG (273-304); Total Protein 6.6 G/DL (6.4-8.3); Troponin I < 0.015 NG/ML (0.00-0.045)
[2019-06-07 21:48] LABS: INR 1.4; PT Patient Result 15.5 SECS (9.6-12.2); Partial Thromboplastin Time 31.5 SECS (20.8-36.0)
[2019-06-07] MEDS ORDERED: AMPICILLIN/SULBACTAM 3,000 MG in SODIUM CHLORIDE 0.9% 100 ML IV STA (22:12)
[2019-06-07] MEDS ORDERED: FUROSEMIDE 40 MG/4 ML VIAL IV STA (22:12)
[2019-06-08] MEDS ORDERED: MAGNESIUM SULF RIDER 4 GM in PREMIX 1 EACH IV PRN (00:49)
[2019-06-08] MEDS ORDERED: ACETAMINOPHEN 325 MG TABLET PO PRN (00:49)
[2019-06-08] MEDS ORDERED: GLUCAGON 1 MG VIAL IM PRN (00:49)
[2019-06-08] MEDS ORDERED: DEXTROSE 50% 25 GM/50 ML VIAL IV PRN ×2 (00:49)
[2019-06-08] MEDS ORDERED: MAGNESIUM SULF RIDER 2 GM in PREMIX 1 EACH IV PRN (00:49)
[2019-06-08] MEDS ORDERED: ONDANSETRON 4 MG/2 ML VIAL IV PRN (00:49)
[2019-06-08] MEDS ORDERED: ALBUTEROL/IPRATROPIUM 3 ML NEB RESP TX PRN (01:04)
[2019-06-08] MEDS: cefTRIAXone 1,000 MG in SYRINGE 1 EACH IV SCH (02:37)
[2019-06-08] MEDS: INSULIN REGULAR 100 UNIT/ML SUBCUT SCH ×5 (02:40→20:52)
[2019-06-08 05:58] LABS: INR 1.4
[2019-06-08 06:02] LABS: Albumin 3.1 G/DL (3.4-5.0); Bilirubin,Total 1.2 MG/DL (0.2-1.0); Calcium 8.5 MG/DL (8.5-10.1); Osmolality,Calculated 288.8 MOS/KG (273-304); Total Protein 6.2 G/DL (6.4-8.3)
[2019-06-08 06:36] LABS: Basophils # 0.1 10*3/uL (0.0-0.2); Basophils % 0.3 % (0.0-0.8); Eosinophils % 0.1 % (0.00-10.9); Hematocrit 37.2 VOL% (35.7-47.0); Immature Granulocytes % 0.5 %; Lymphocytes # 2.2 10*3/uL (1.4-4.0); Lymphocytes % 11.3 % (21.3-54.2); Mean Corpuscular HGB Conc 32.3 GM/DL (32-36); Mean Corpuscular Volume 93.5 FL (87-102); Mean Platelet Volume 10.9 FL (9.6-12.0); Monocytes % 11.5 % (1.7-12.7); Neutrophils % 76.3 % (38.7-73.9); Platelet Count 151 T/CUMM (130-400); Red Blood Count 3.98 MC/CUMM (3.8-5.5); Red Cell Distribution Width 14.5 % (9.3-17.3)
[2019-06-08] MEDS: ENOXAPARIN 40 MG/0.4 ML SYRINGE SUBCUT SCH (10:03)
[2019-06-08] MEDS: PANTOPRAZOLE 40 MG TABLET PO SCH (10:03)
[2019-06-08] MEDS: FUROSEMIDE 40 MG/4 ML VIAL IV SCH ×2 (10:04→16:54)
[2019-06-08] MEDS ORDERED: POTASSIUM CHLORIDE 20 MEQ TABLET PO ONE ×4 (11:10→14:00)
[2019-06-08] MEDS ORDERED: SODIUM CHLORIDE 0.9% 500 ML IV ONE (12:17)
[2019-06-09] MEDS: cefTRIAXone 1,000 MG in SYRINGE 1 EACH IV SCH (00:42)
[2019-06-09 05:57] LABS: INR 1.3; PT Patient Result 13.9 SECS (9.6-12.2)
[2019-06-09 06:21] LABS: Calcium 7.6 MG/DL (8.5-10.1); Osmolality,Calculated 288.1 MOS/KG (273-304)
[2019-06-09] MEDS: INSULIN REGULAR 100 UNIT/ML SUBCUT SCH ×4 (08:01→21:37)
[2019-06-09] MEDS: FUROSEMIDE 40 MG/4 ML VIAL IV SCH ×2 (09:36→16:28)
[2019-06-09] MEDS: PANTOPRAZOLE 40 MG TABLET PO SCH (09:36)
[2019-06-09] MEDS: ENOXAPARIN 40 MG/0.4 ML SYRINGE SUBCUT SCH (09:36)
[2019-06-09] MEDS ORDERED: ALBUTEROL 2.5 MG/3 ML NEB RESP TX PRN (13:42)
[2019-06-09] MEDS: POTASSIUM CHLORIDE 20 MEQ TABLET PO SCH (16:28)
[2019-06-09] MEDS ORDERED: WARFARIN 5 MG TABLET PO SCH (18:00)
[2019-06-09] MEDS: OMEGA 3 ACID ETHYL ESTERS 1 GM CAPSULE PO SCH (21:37)
[2019-06-09] MEDS: GEMFIBROZIL 600 MG TABLET PO SCH (21:37)
[2019-06-10] MEDS: cefTRIAXone 1,000 MG in SYRINGE 1 EACH IV SCH (00:35)
[2019-06-10 06:12] LABS: Basophils # 0.1 10*3/uL (0.0-0.2); Basophils % 0.5 % (0.0-0.8); Eosinophils # 0.2 10*3/uL (0.0-0.87); Eosinophils % 2.1 % (0.00-10.9); Hematocrit 35.7 VOL% (35.7-47.0); Hemoglobin 11.5 GM/DL (12.0-16.0); Immature Granulocytes % 0.5 %; Immature Granulocytes Absolute 0.05 #; Lymphocytes # 2.3 10*3/uL (1.4-4.0); Lymphocytes % 22.6 % (21.3-54.2); Mean Corpuscular HGB Conc 32.2 GM/DL (32-36); Mean Corpuscular Volume 93.2 FL (87-102); Mean Platelet Volume 11.6 FL (9.6-12.0); Monocytes % 11.4 % (1.7-12.7); Neutrophils % 62.9 % (38.7-73.9); Platelet Count 129 T/CUMM (130-400); Red Blood Count 3.83 MC/CUMM (3.8-5.5); Red Cell Distribution Width 14.2 % (9.3-17.3)
[2019-06-10 06:13] LABS: INR 1.1; PT Patient Result 12.4 SECS (9.6-12.2)
[2019-06-10 06:44] LABS: Osmolality,Calculated 283.7 MOS/KG (273-304)
[2019-06-10] MEDS: INSULIN REGULAR 100 UNIT/ML SUBCUT SCH ×4 (08:10→21:38)
[2019-06-10] MEDS: PANTOPRAZOLE 40 MG TABLET PO SCH (09:32)
[2019-06-10] MEDS: NEBIVOLOL 10 MG TABLET PO SCH (09:32)
[2019-06-10] MEDS: POTASSIUM CHLORIDE 20 MEQ TABLET PO SCH ×2 (09:32→17:44)
[2019-06-10] MEDS: ENOXAPARIN 40 MG/0.4 ML SYRINGE SUBCUT SCH (09:32)
[2019-06-10] MEDS: FUROSEMIDE 40 MG/4 ML VIAL IV SCH ×2 (09:32→17:44)
[2019-06-10] MEDS: OMEGA 3 ACID ETHYL ESTERS 1 GM CAPSULE PO SCH ×2 (09:32→21:38)
[2019-06-10] MEDS: GEMFIBROZIL 600 MG TABLET PO SCH ×2 (09:32→21:38)
[2019-06-10] MEDS ORDERED: POTASSIUM CHLORIDE 20 MEQ TABLET PO ONE (12:05)
[2019-06-10] MEDS ORDERED: WARFARIN 5 MG TABLET PO SCH (18:00)
[2019-06-11] MEDS: cefTRIAXone 1,000 MG in SYRINGE 1 EACH IV SCH (00:32)
[2019-06-11 05:49] LABS: Basophils # 0.1 10*3/uL (0.0-0.2); Basophils % 0.5 % (0.0-0.8); Eosinophils # 0.2 10*3/uL (0.0-0.87); Eosinophils % 2.4 % (0.00-10.9); Hematocrit 37.1 VOL% (35.7-47.0); Hemoglobin 11.9 GM/DL (12.0-16.0); Immature Granulocytes % 0.3 %; Immature Granulocytes Absolute 0.03 #; Lymphocytes # 2.6 10*3/uL (1.4-4.0); Lymphocytes % 27.9 % (21.3-54.2); Mean Corpuscular HGB Conc 32.1 GM/DL (32-36); Mean Platelet Volume 11.1 FL (9.6-12.0); Monocytes % 12.5 % (1.7-12.7); Neutrophils % 56.4 % (38.7-73.9); Platelet Count 125 T/CUMM (130-400); Red Blood Count 3.99 MC/CUMM (3.8-5.5); White Blood Count 9.2 T/CUMM (4-12)
[2019-06-11 06:04] LABS: INR 1.6; PT Patient Result 17.4 SECS (9.6-12.2)
[2019-06-11 06:35] LABS: Calcium 8.1 MG/DL (8.5-10.1); Osmolality,Calculated 286.3 MOS/KG (273-304)
[2019-06-11] MEDS: NEBIVOLOL 10 MG TABLET PO SCH (08:30)
[2019-06-11] MEDS: OMEGA 3 ACID ETHYL ESTERS 1 GM CAPSULE PO SCH (08:30)
[2019-06-11] MEDS: PANTOPRAZOLE 40 MG TABLET PO SCH (08:33)
[2019-06-11] MEDS: POTASSIUM CHLORIDE 20 MEQ TABLET PO SCH (08:33)
[2019-06-11] MEDS: GEMFIBROZIL 600 MG TABLET PO SCH (08:33)
[2019-06-11] MEDS: FUROSEMIDE 40 MG/4 ML VIAL IV SCH (08:33)
[2019-06-11] MEDS: ENOXAPARIN 40 MG/0.4 ML SYRINGE SUBCUT SCH (08:33)
[2019-06-11] MEDS: INSULIN REGULAR 100 UNIT/ML SUBCUT SCH ×2 (08:33→11:48)
[2019-06-11] MEDS ORDERED: DIGOXIN 0.125 MG TABLET PO SCH ×2 (09:00)
[2019-06-11] MEDS ORDERED: POTASSIUM CHLORIDE 20 MEQ TABLET PO ONE (09:54)
[2019-06-11 13:08] VITALS: BP 141/80
== END 2019-06-11 14:21 | disposition home health service (06) | DRG 291 ==
LOC: N.ED 19:12 → N.EDINP 06-08 00:05 → N.5E 06-08 00:46
PROVIDERS: ADMIT Internal Medicine; ATTEND Internal Medicine